=== PATIENT | female | born 1990 | race Caucasian/White ===

== ENCOUNTER 2023-07-13 16:34 | Emergency (ER) | payer OTHER, SELFPAY ==
[2023-07-13 16:39] VITALS: BP 157/90; PULSE 76; RESP 20; TEMP 36.9; O2SAT 99; BMI 18.3
--- NOTE | 2023-07-13 16:53 | ED.SKABFB1 ---
HPI - Skin/Abscess/Foreign Bdy General Chief complaint: Skin/Abscess/Foreign Body Stated complaint: poss infection in breast Time Seen by Provider: 07/13/23 16:35 Source: patient Mode of arrival: walk-in Limitations: no limitations History of Present Illness HPI narrative: patient is a 33-year-old female who presents to the emergency department for the evaluation of redness, pain and swelling to the left breast that was noted today. She does have medical history significant for lumpectomy several years ago with a general surgeon in [place]. She denies any drainage from the red and swollen area under the left nipple. She denies any injuries or traumas. She is not breast-feeding, she has had a previous hysterectomy. No medications taken prior to arrival. Related Data Previous Rx's Medication Instructions Recorded cephalexin 500 mg capsule 500 mg PO Q8H 10 days #30 caps 07/13/23 hydrocodone 5 mg-acetaminophen 325 1 tab PO Q4H PRN pain #15 tabs 07/13/23 mg tablet ondansetron 4 mg disintegrating 4 mg PO Q6H PRN nausea and 07/13/23 tablet vomiting #12 tabs sulfamethoxazole 800 1 tab PO BID 10 days #20 tabs 07/13/23 mg-trimethoprim 160 mg tablet (Bactrim DS) Allergies Allergy/AdvReac Type Severity Reaction Status Date / Time No Known Drug Allergies Allergy Verified 07/13/23 16:39 Review of Systems ROS Constitutional Denies: fever or chills Ears, nose, mouth, and throat Denies: throat pain Respiratory Denies: shortness of breath or cough Gastrointestinal Denies: nausea or vomiting Musculoskeletal Denies: back pain Integumentary/Breast Reports: rash, redness, skin pain and skin tenderness Neurological Denies: headache Endocrine Denies: excessive urination PFSH PFSH Social History Smoking status: Heavy tobacco smoker Exam Narrative Exam Narrative: Gen.: Awake, alert, in no distress Head: Normocephalic, atraumatic ENT: Moist mucous membranes Respiratory: No respiratory distress Breast: evaluation of the left breast was performed with Rita Louise RN at bedside throughout the duration of the exam. Patient's significant other also at bedside. Left breast with erythema and tenderness inferior to the left nipple. The left areola and nipple are without induration, drainage or puckering. Well-healed surgical incision in the left superior breast from previous lumpectomy. No palpable masses under the red and swollen area inferior to the left nipple. No open wounds or drainage. No red streaking. Extremities: Moves extremities equally Psych: Normal mood and affect Neuro: No focal neuro deficit Skin: Warm, dry, intact Constitutional Vital Signs, click to edit/add: Last Vital Signs Temp 98.5 F 07/13/23 16:39 Pulse 76 07/13/23 16:39 Resp 20 07/13/23 16:39 BP 157/90 H 07/13/23 16:39 Pulse Ox 99 07/13/23 16:39 O2 Del Method Room Air 07/13/23 16:39 Course Vital Signs Vital signs: Vital Signs Temperature 98.5 F 07/13/23 16:39 Pulse Rate 76 07/13/23 16:39 Respiratory Rate 20 07/13/23 16:39 Blood Pressure 157/90 H 07/13/23 16:39 Pulse Oximetry 99 07/13/23 16:39 Oxygen Delivery Method Room Air 07/13/23 16:39 Temperature 98.5 F 07/13/23 16:39 Pulse Rate 76 07/13/23 16:39 Respiratory Rate 20 07/13/23 16:39 Blood Pressure 157/90 H 07/13/23 16:39 Pulse Oximetry 99 07/13/23 16:39 Oxygen Delivery Method Room Air 07/13/23 16:39 MDM - Skin/Abscess/Foreign Bdy MDM Narrative Medical decision making narrative: history and physical are consistent with cellulitis/possible early abscess of the left breast. Patient will be started on antibiotic therapy with pain medication and nausea medication as needed. It was strongly encouraged that she follow up with general surgery, if the infection worsens or develops an abscess into the breast tissue, patient will need to see general surgery for further evaluation and treatment. Return to the emergency department if symptoms change or worsen. Medical Records Attestation: I reviewed the patient's medical records. Discharge Plan Discharge Chief Complaint: Skin/Abscess/Foreign Body Clinical Impression: Cellulitis of left breast Patient Disposition: Home, Self-Care Time of Disposition Decision: 16:48 Condition: Good Prescriptions / Home Meds: New hydrocodone-acetaminophen 5-325 mg tablet 1 tab PO Q4H PRN (Reason: pain) Qty: 15 0RF Rx Instructions: DX: L03.90 sulfamethoxazole-trimethoprim [Bactrim DS] 800-160 mg tablet 1 tab PO BID 10 Days Qty: 20 0RF cephalexin 500 mg capsule 500 mg PO Q8H 10 Days Qty: 30 0RF ondansetron 4 mg tablet,disintegrating 4 mg PO Q6H PRN (Reason: nausea and vomiting) Qty: 12 0RF Instructions: Cellulitis (ED) Stand Alone Forms: Portal Instructions Referrals: CAMMIE ANDERSEN [Primary Care Provider] - 1 week Ton Matta MD [Physician] - 1 week
[2023-07-13] MEDS: HYDROCODONE/ACET 5-325 MG TABLET 1 TAB PO (16:57)
== END 2023-07-13 16:58 | disposition home or self-care (01) ==
PROVIDERS: Emergency Provider Emergency Medicine; PCP Family Medicine
DX: N61.0 Mastitis without abscess (principal); F17.210 Nicotine dependence, cigarettes, uncomplicated
CPT/HCPCS: 99283

== ENCOUNTER 2023-09-25 16:13 | Emergency (ER) | payer OTHER, SELFPAY ==
[2023-09-25 16:21] VITALS: BP 168/84; PULSE 84; RESP 18; TEMP 36.6; O2SAT 100; BMI 28.2
--- OUTSIDE RECORDS SUMMARY | 2023-09-25 16:22 | XMS_ITS | CCD ---
Author Name Unknown Address [address] [place] [address] Organization [facility] Care Team Providers Care Supervisor [place] Name Role Phone KARINA, KATHIE Unavailable Unavailable KARINA, KATHIE Unavailable Unavailable KARINA, KATHIE Unavailable Unavailable KARINA, KATHIE Unavailable Unavailable KARINA, KATHIE Unavailable Unavailable REQUEST, NONE LISTED Unavailable Unavailable KARINA, KATHIE Unavailable Unavailable ROE RICHARDS Unavailable Unavailable KARINA, KATHIE Unavailable Unavailable KARINA, KATHIE Unavailable Unavailable KARINA, KATHIE Unavailable Unavailable KARINA, KATHIE Unavailable Unavailable KARINA, KATHIE Unavailable Unavailable KARINA, KATHIE Unavailable Unavailable KARINA, KATHIE Unavailable Unavailable KARINA, KATHIE Unavailable Unavailable HOUSE, CAMMIE Unavailable Unavailable KARINA, KATHIE Unavailable Unavailable KARINA, KATHIE Unavailable Unavailable HOUSE, CAMMIE Unavailable Unavailable KARASIK, SHI Unavailable Unavailable KARINA, KATHIE Unavailable Unavailable KARINA, KATHIE Unavailable Unavailable AGUBOSIM, MIRANDA Unavailable Unavailable Amy SUPERVISOR ELECTRIC MOTOR TESTING-CLINICAL PATHOLOGIST, [place] [facility] Provider [phone] Allergies Allergy Classification Reported Allergen(s) Allergy Type Date of Onset Reaction(s) Facility (1 source) Ciprofloxacin Drug Allergy [address] [facility] Repository (1 source) HYDROmorphone Drug Allergy [address] [facility] (1 source) Leucine Drug Allergy [address] [facility] (1 source) Nitrofurantoin Drug Allergy [address] [facility] (1 source) Sulfonamides (Antibiotic) Drug allergy (disorder) [facility] (1 source) NITROFURANTOIN, MACROCRYSTALS / Nitrofurantoin, Monohydrate Drug Allergy 8 [facility] (1 source) Sulfonamides (Antibiotic) Propensity to adverse reactions to drug 8 [facility] Medications Current Medications Medication Drug Class(es) Dates Sig (Normalized) Sig (Original) [id number] 200 actuat albuterol 0.09 mg/actuat metered dose inhaler (1 source) beta2-Adrenergic Agonist Start: 12-07-2022 take 2 puff(s) by inhalation every six hours as needed for wheezing albuterol (PROVENTIL HFA;VENTOLIN HFA) 90 mcg/actuation inhaler Indications: Mild intermittent asthma without complication Inhale 2 puffs every 6 (six) hours as needed for wheezing. 18 g 2 12/07/2022 Active DULoxetine 30 mg delayed release oral capsule (1 source) Serotonin and Norepinephrine Reuptake Inhibitor Start: 04-27-2023 take 1 capsule by mouth once daily in the morning DULoxetine (CYMBALTA) 30 mg capsule take 1 capsule by mouth every morning 30 capsule 1 04/27/2023 Active Problems Active Problems Problem Classification Problem Date Documented Da te Episodic/Chronic Abdominal pain (5 sources) Pelvic and perineal pain; Translations: [PELVIC AND PERINEAL PAIN] Onset: 03-14-2018 Asthma (1 source) Unspecified asthma, uncomplicated; Translations: [UNSPECIFIED ASTHMA UNCOMPLICATED] Onset: 04-30-2018 Chronic Menstrual disorders (7 sources) Excessive and frequent menstruation with irregular cycle; Translations: [Dysmenorrhea, unspecified] Onset: 03-20-2018 Chronic Other female genital disorders (1 source) Unspecified dyspareunia; Translations: [UNSPECIFIED DYSPAREUNIA] Onset: 04-30-2018 Substance-related disorders (1 source) Nicotine dependence, cigarettes, uncomplicated; Translations: [NICOTINE DEPEND CIGARETTES UNCOMP] Onset: 04-30-2018 Chronic Past or Other Problems Problem Classification Problem Date Documented Date Episodic/Chronic Immunizations and screening for infectious disease (1 source) Encounter for screening for human papillomavirus (HPV); Translations: [ENC SCREENING HUMAN PAPILLOMAVIRUS] Onset: 02-28-2018 Episodic Other screening for suspected conditions (not mental disorders or infectious disease) (4 sources) Encounter for screening for malignant neoplasm of cervix; Translations: [ENC SCREENING MALIG NEOPLASM CERV] Onset: 02-23-2018 Episodic Results Test Name Value Interpretation Reference Range Facility BUNon 04-24-2018 Urea nitrogen mass conc 4.0 mg/dL Critically low 7.0-17.0 [facility] Comment on above: Performed By: #### CT/NGNA ####[facility] [address] [place] [id number] CBC AUTO DIFFon 04-24-2018 Basophils Auto #/vol (Bld) 0.0 103/ul Normal 0.0-0.1 [facility] Comment on above: Performed By: #### CBC ####[facility] ital Nixwavndoa9637 [address] [place] Basophils/100 WBC Auto (Bld) 0.2 % Normal 0.2-2.0 [facility] Comment on above: Performed By: #### CBC ####[facility] Wefuzgsyun20[address] [place] Eosinophils Auto #/vol (Bld) 0.1 103/ul Normal 0.0-0.7 [facility] Comment on above: Performed By: #### CBC ####[facility] ital Mpxxcsxelj8199 [address] [place] Eosinophils/100 WBC Auto (Bld) 0.9 % Normal 0.9-7.0 [facility] Comment on above: Performed By: #### CBC ####[facility] Cmzyshgtfg7548 [address] [place] Erythrocyte distribution width Auto Ratio (RBC) 14.4 % Normal 11.0-15.[address] [facility] Comment on above: Performed By: #### CBC ####[facility] ital Uzuklhvprh7056 [address] [place] Hematocrit Auto Volume Fraction (Bld) 29.3 % Critically low 36.0-48.0 [facility] Comment on above: Performed By: #### CBC ####[facility] ital Jqzbgcnlew5372 [place] [phone] Hemoglobin mass conc (Bld) 9.9 g/dL Critically low 12.0-16.0 [facility] Comment on above: Result Comment: Surgery and IV fluids Performed By: #### C BC ####[facility] Aktkraxhwl2099 [address] [place] IG # 0.04 10e3/ul Critically high 0.00-0.03 [facility] Comment on above: Performed By: #### CBC ####[facility] ital Htcuevcfjf4021 [address] IG % 0.3 % Normal 0.0-0.5 [facility] Comment on above: Performed By: #### CBC ####[facility] Hjihxzrcyh4405 [address] Lymphocytes Auto #/vol (Bld) 1.5 103/ul Normal 1.2-3.8 [facility] Comment on above: Performed By: #### CBC ####[facility] [address] [place] [address] Lymphocytes/100 WBC Auto (Bld) 11.6 % Critically low 20.5-60.[address] [facility] Comment on above: Performed By: #### CBC ####[facility] Zjtzutytwy5553 [address] MANUAL DIFF REQ NO Normal [facility] Comment on above: Performed By: #### CBC ####[facility] Jltibodqac8687 [address] MCH Auto Entitic mass (RBC) 29.1 pg Normal 26.7-34.[address] [facility] Comment on above: Performed By: #### CBC ####[facility] Djklclmghj0456 [address] MCHC Auto mass conc (RBC) 33.8 g/dL Normal 29.9-35.[address] [facility] Comment on above: Performed By: #### CBC ####[facility] Hpqmxzberp9259 [address] MCV Auto Entitic volume (RBC) 86.2 fL Normal 81.0-99.[address] [facility] Comment on above: Performed By: #### CBC ####[facility] ital Igqhabwvxc4988 [place] [phone] Monocytes Auto #/vol (Bld) 1.0 103/ul Critically high 0.3-0.8 [facility] Comment on above: Performed By: #### CBC ####[facility] ital Vavkmcscrg8850 [place] [phone] Monocytes/100 WBC Auto (Bld) 7.5 % Normal 1.7-12.[address] [facility] Comment on above: Performed By: #### CBC ####[facility] ital Ohstjnjcrj[address] [place], [place] [address] Neutrophils Auto #/vol (Bld) 10.4 103/ul Critically high 1.4-6.[address] [facility] Comment on above: Performed By: #### CBC ####[facility] Dt[address]tqys[address] [place], [place] [address] Neutrophils/100 WBC Auto (Bld) 79.5 % Critically high 43.0-75.[address] [facility] Comment on above: Performed By: #### CBC ####[facility] Vlzeelldxi[address] [place], [place] [address] Platelet mean volume Auto Entitic volume (Bld) 10.0 fL Normal 9.5-13.[address] [facility] Comment on above: Performed By: #### CBC ####[facility] Tznjdqvdjn[address] [place], [place] [address] Platelets Auto #/vol (Bld) 252 103/ul Normal 150-[address] [facility] Comment on above: Performed By: #### CBC ####[facility] Ppeyejlwxg[address] [place], [place] [address] RBC Auto #/vol (Bld) 3.40 106/ul Critically low 4.20-5.[address] [facility] Comment on above: Performed By: #### CBC ####[facility] ital Dxqxyrgwfs184[address] [place], [place] [address] WBC Auto #/vol (Bld) 13.1 103/ul Critically high 4.0-11.[address] [facility] Comment on above: Performed By: #### CBC ####[facility] Ivmskffsgh[address] [place], [place] [address] CREATININEon 04-24-2018 Creatinine mass conc 0.49 mg/dL Critically low 0.52-1.[address] [facility] Comment on above: Performed By: #### CT/NGNA ####[facility] [address] [place] [address] [place] EGFR-AF PORTUGUESE >60 Normal >=[address] [facility] Comment on above: Performed By: #### CT/NGNA ####[facility] [address]pl[address]efq[address] [place] [address] [place] EGFR-NON AF PORTUGUESE >60 Normal >=[address] [facility] Comment on above: Performed By: #### CT/NGNA ####[facility] [address]xsgzu[address] [place] [address] [place] CBC AUTO DIFFon 04-23-2018 Basophils Auto #/vol (Bld) 0.1 103/ul Normal 0.0-0.[address] [facility] Comment on above: Performed By: #### CBC ####[facility] Q[address]vsqspwpb[address] [place] [address] [place] Basophils/100 WBC Auto (Bld) 0.4 % Normal 0.2-2.[address] [facility] Comment on above: Performed By: #### CBC ####[facility] Iuntrchvyy[address] [place] [address] [place] Eosinophils Auto #/vol (Bld) 0.3 103/ul Normal 0.0-0.[address] [facility] Comment on above: Performed By: #### CBC ####[facility] Aoiomwpjyd[address] [place] [address] [place] Eosinophils/100 WBC Auto (Bld) 2.2 % Normal 0.9-7.[address] [facility] Comment on above: Performed By: #### CBC ####[facility] Kzbvbllxxr7919 [place] [phone] Erythrocyte distribution width Auto Ratio (RBC) 14.5 % Normal 11.0-15.0 [facility] Comment on above: Performed By: #### CBC ####[facility] Okrehgguiw3693 [place] [phone] Hematocrit Auto Volume Fraction (Bld) 37.0 % Normal 36.0-48.[address] [facility] Comment on above: Performed By: #### CBC ####[facility] Ducdkokskh7683 [place] [phone] Hemoglobin mass conc (Bld) 12.4 g/dL Normal 12.0-16.[address] [facility] Comment on above: Performed By: #### CBC ####[facility] N[address]axbxlcej[address] [place] [address] [place] IG # 0.04 10e3/ul Critically high 0.00-0.03 [facility] Comment on above: Performed By: #### CBC ####[facility] Vkbblmsklc[address] [place] [address] [place] IG % 0.4 % Normal 0.0-0.5 [facility] Comment on above: Performed By: #### CBC ####[facility] Rajapqqeos6650 [place] [phone] Lymphocytes Auto #/vol (Bld) 3.0 103/ul Normal 1.2-3.[address] [facility] Comment on above: Performed By: #### CBC ####[facility] Unthuaifra9968 [place] [phone] Lymphocytes/100 WBC Auto (Bld) 27.1 % Normal 20.5-60.[address] [facility] Comment on above: Performed By: #### CBC ####[facility] Qmdiudftmk5[address] [place] MANUAL DIFF REQ NO Normal [facility] Comment on above: Performed By: #### CBC ####[facility] Oawxkchtjj5718 [place] [phone] MCH Auto Entitic mass (RBC) 28.9 pg Normal 26.7-34.[address] [facility] Comment on above: Performed By: #### CBC ####[facility] Mvovcgndoe9709 [place] [phone] [place] MCHC Auto mass conc (RBC) 33.5 g/dL Normal 29.9-35.[address] [facility] Comment on above: Performed By: #### CBC ####[facility] ital Edczfkglgt8447 [place] [phone] MCV Auto Entitic volume (RBC) 86.2 fL Normal 81.0-99.[address] [facility] Comment on above: Performed By: #### CBC ####[facility] Qedzwhaptm[address] [place] [address] [place] Monocytes Auto #/vol (Bld) 0.9 103/ul Critically high 0.3-0.[address] [facility] Comment on above: Performed By: #### CBC ####[facility] Rukvtbdejj[address] [place], [place] [address] Monocytes/100 WBC Auto (Bld) 8.5 % Normal 1.7-12.[address] [facility] Comment on above: Performed By: #### CBC ####[facility] Clpwhkcyxx3[address] [place], [place] [address] Neutrophils Auto #/vol (Bld) 6.8 103/ul Critically high 1.4-6.[address] [facility] Comment on above: Performed By: #### CBC ####[facility] Zdisjxphex[address] [place], [place] [address] Neutrophils/100 WBC Auto (Bld) 61.4 % Normal 43.0-75.[address] [facility] Comment on above: Performed By: #### CBC ####[facility] Yiubcovvev0277 [place] [phone] Platelet mean volume Auto Entitic volume (Bld) 9.4 fL Critically low 9.5-13.[address] [facility] Comment on above: Performed By: #### CBC ####[facility] Rjubakehna5299 [place], [place] [address]Kzebtm [place] Platelets Auto #/vol (Bld) 356 103/ul Normal 150-[address] [facility] Comment on above: Performed By: #### CBC ####[facility] Boqvsvmlfu8183 [place], [place] [address]Plfoom [place] RBC Auto #/vol (Bld) 4.29 106/ul Normal 4.20-5.[address] [facility] Comment on above: Performed By: #### CBC ####[facility] Jakiffiict[address] [place], [place] [address] WBC Auto #/vol (Bld) 11.1 103/ul Critically high 4.0-11.[address] [facility] Comment on above: Performed By: #### CBC ####[facility] Pdqyuoevhv[address] [place], [place] [address] PREG QUANT HCGon 04-23-2018 HCG QUANT <2.[address] [facility] Comment on above: Performed By: #### PREGQNT ####[facility] Iagcbmjrym[address] [place], [place] [address] HCG RANGE SEE BELOW Normal [facility] Comment on above: Result Comment: 5-50 0-1 WEEK 40-300 1-2 WEEKS 100-1,000 2-3 WEEKS 500-6,000 3-4 WEEKS 5,000-200,000 1-2 MONTHS 10,000-100,000 2-3 MONTHS 3,000-50,000 2ND TRIMESTER 1,000-50,000 3RD TRIMESTER Performed By: #### P REGQNT ####[facility] Gzinmwmbcd[address] [place], [place] [address] CBC AUTO DIFFon 04-02-2018 Basophils Auto #/vol (Bld) 0.0 103/ul Normal 0.0-0.[address] [facility] Comment on above: Performed By: #### CBC ####[facility] Feonvqfews[address] [place], [place] [address] Basophils/100 WBC Auto (Bld) 0.5 % Normal 0.2-2.[address] [facility] Comment on above: Performed By: #### CBC ####[facility] ital Pknlxcoaez4055 [address] [place] Eosinophils Auto #/vol (Bld) 0.3 103/ul Normal 0.0-0.7 [facility] Comment on above: Performed By: #### CBC ####[facility] ital Eebgngwczn[address] [place] [address] [place] Eosinophils/100 WBC Auto (Bld) 3.6 % Normal 0.9-7.0 [facility] Comment on above: Performed By: #### CBC ####[facility] Mgxauxpjge[address] [place] [address] [place] Erythrocyte distribution width Auto Ratio (RBC) 14.2 % Normal 11.0-15.0 [facility] Comment on above: Performed By: #### CBC ####[facility] Lwcdwjbdmb[address] [place] [address] [place] Hematocrit Auto Volume Fraction (Bld) 40.7 % Normal 36.0-48.0 [facility] Comment on above: Performed By: #### CBC ####[facility] Skjnnkebnh[address] [place] [address] [place] Hemoglobin mass conc (Bld) 13.6 g/dL Normal 12.0-16.0 [facility] Comment on above: Performed By: #### CBC ####[facility] Tlkmr[address]nt[address] [place] [address] [place] IG # 0.02 10e3/ul Normal 0.00-0.[address] [facility] Comment on above: Performed By: #### CBC ####[facility] C[address]omtjzhvs[address] [place] [address] [place] IG % 0.2 % Normal 0.0-0.[address] [facility] Comment on above: Performed By: #### CBC ####[facility] Trpktemdxj[address] [place] [address] [place] Lymphocytes Auto #/vol (Bld) 1.9 103/ul Normal 1.2-3.8 [facility] Comment on above: Performed By: #### CBC ####[facility] ital Zvwwhjqsbv3656 [place] [phone] Lymphocytes/100 WBC Auto (Bld) 22.5 % Normal 20.5-60.0 [facility] Comment on above: Performed By: #### CBC ####[facility] ital Aajgsptbqx8722 [address] [place] MANUAL DIFF REQ NO Normal [facility] Comment on above: Performed By: #### CBC ####[facility] Lhixmtkgbf5846 [place] [phone] MCH Auto Entitic mass (RBC) 29.0 pg Normal 26.7-34.[address] [facility] Comment on above: Performed By: #### CBC ####[facility] R[address]rwifzd[address] [place] [address] [place] MCHC Auto mass conc (RBC) 33.4 g/dL Normal 29.9-35.[address] [facility] Comment on above: Performed By: #### CBC ####[facility] Vthtndannf[address] [place], [place] [address] MCV Auto Entitic volume (RBC) 86.8 fL Normal 81.0-99.[address] [facility] Comment on above: Performed By: #### CBC ####[facility] Shmaohzumu[address] [place], [place] [address] Monocytes Auto #/vol (Bld) 0.7 103/ul Normal 0.3-0.[address] [facility] Comment on above: Performed By: #### CBC ####[facility] Fxnxtfugsk[address] [place], [place] [address] Monocytes/100 WBC Auto (Bld) 8.9 % Normal 1.7-12.[address] [facility] Comment on above: Performed By: #### CBC ####[facility] Mchvyujyza[address] [place], [place] [address] Neutrophils Auto #/vol (Bld) 5.4 103/ul Normal 1.4-6.5 [facility] Comment on above: Performed By: #### CBC ####[facility] Qnmkidioky0476 [address] [place] Neutrophils/100 WBC Auto (Bld) 64.3 % Normal 43.0-75.0 [facility] Comment on above: Performed By: #### CBC ####[facility] Canvobfuzh7358 [address] [place] Platelet mean volume Auto Entitic volume (Bld) 9.2 fL Critically low 9.5-13.5 [facility] Comment on above: Performed By: #### CBC ####[facility] Osoevbvoii[address] [place] [address] [place] Platelets Auto #/vol (Bld) 327 103/ul Normal 150-[address] [facility] Comment on above: Performed By: #### CBC ####[facility] Xxnsjykvhi[address] [place] [address] [place] RBC Auto #/vol (Bld) 4.69 106/ul Normal 4.20-5.40 [facility] Comment on above: Performed By: #### CBC ####[facility] [address]xkjkorrec[address] [place] [address] [place] WBC Auto #/vol (Bld) 8.3 103/ul Normal 4.0-11.[address] [facility] Comment on above: Performed By: #### CBC ####[facility] Bugabbdqme[address] [place] [address] [place] TSHon 04-02-2018 Thyrotropin Qn 1.150 uIU/mL Normal 0.470-4.[address] [facility] Comment on above: Performed By: #### TSH ####[facility] [address]ysve[address]fv[address] [place] [address] [place] Thyrotropin Qn SEE BELOW Normal [facility] Comment on above: Result Comment: <0.34 UIU/ml HYPERTHYROI D 0.34-5.60 UIU/ml EUTHYROID >5.60 UIU/ml HYPOTHYROID Performed By: #### T SH ####[facility] Ducpcjecfm6922 [place], [place] [address]Ltplbx Karen US PELVIS AND TRANSVAGon US PELVIS AND TRANSVAG [address] [place] [address] Patient: ERNA JENKINS Exam Date: 03/14/2018DOB: 1990 Gender:F : DR KATHIE COLLINS . Admission #: [id number] : Order #: [id number] HERE TO VIEW EXAM RADIOLOGY REPORT PROCEDURE: ULTRASOUND PELVIS AND TRANSVAGINAL COMPARISON: US PELVIS AND TRANSVAG, 06/20/2015. INDICATIONS: Chronic pelvic pain with menorrhagia TECHNIQUE: Transabdominal sonographic examination. Transvaginal sonographic examination.FINDINGS: UTERUS: Normal size and appearance. Uterus: 8.5 x 4.0 x 5.1 cm (89.9 cc)ENDOMETRIUM: Normal homogeneous appearance. Endometrial thickness: 2 mm RIGHT OVARY: Normal size and appearance. Blood flow present within ovary on color Doppler. Right ovary: 2.9 x 2.2 x 2.7 cm (8.9 cc) LEFT OVARY: Normal size and appearance. Blood flow is present within ovary on Color Doppler. Left ovary: 2.5 x 2.6 x 2.1 cm (7.1 cc) CUL-DE-SAC: Unremarkable. No significant free fluid.BLADDER: Unremarkable.OTHER: None. CONCLUSION: Normal examination. Dictated by: Roe Richards M.D. on 03/14/2018 at 17:59 Approved by: Roe Richards M.D. on 03/14/2018 at 18:00 Normal [facility] PAP ACOG PANEL 2: 30 to 65on 02-28-2018 Age Gdln ACOG Testing 30-65 Normal [facility] Comment on above: Performed By: #### [id number] ####[facility] Nchdbhuyrs9857 [place], [place] [address]Zwqegd [place] COMMENT Comment Normal [facility] Comment on above: Result Comment: [id number] a t: WB Performed By: #### [id number] ####[facility] [address] [place] [address] [place] DIAGNOSIS: Comment Normal [facility] Comment on above: Result Comment: NEGATIVE FOR INTRAEPITHE LIAL LESION AND MALIGNANCY.THIS SPECIMEN WAS RESCREENED PART OF OUR [facility] PROGRAM.Performed at: WB Performed By: #### [id number] ####[facility] [address]ftxq[address] [place] [address] [place] HPV Aptima Negative Normal Negative [facility] Comment on above: Result Comment: This test was developed and its performance characteristicsdetermined by [employer]. It has not been cleared or approvedby the Food and Drug Administration.This test detects fourteen high-risk HPV types (16/18/31/33/35/39/45/51/52/56/58/59/66/68) without differentiation.Performed at: =G Performed By: #### [id number] ####[address] Methodology: Comment Normal [facility] Comment on above: Result Comment: This liquid based SurePa th(R) pap test was screened with theassistance of an image guided system.Performed at: WB Performed By: #### [id number] ####[facility] [address] [place] [address] Note: Comment Normal [facility] Comment on above: Result Comment: The Pap smear is a scree blayne test designed to aid in the detection ofpremalignant and malignant conditions of the uterine cervix. It is not adiagnostic procedure and should not be used as the sole means of detectingcervical cancer. Both false-positive and false-negative reports do occur. .Performed at: WB Performed By: #### [id number] ####[facility] [address] [place] [address] [place] Performed by: Comment Normal [facility] Comment on above: Result Comment: Maryjane Moss Cytote chnologist (ASCP)Performed at: WB Performed By: #### [id number] ####[facility] [address] [place] [address] [place] QC reviewed by: Comment Normal [facility] Comment on above: Result Comment: Patsy Hernandez, Cytot echnologist (ASCP)Performed at: WB Performed By: #### [id number] ####[facility] [address] [place] Specimen adequacy: Comment Normal [facility] Comment on above: Result Comment: Satisfactory for evaluat ion. Endocervical and/or squamous metaplasticcells (endocervical component) are present.Performed at: WB Performed By: #### [id number] ####[facility] [address] [place] . . Normal [facility] Comment on above: Result Comment: Performed at: WB Performed By: #### [id number] ####[facility] [address] [place] CHLAMYDIA/GONOCOCCUS FLOWER W/C ONF. (SWAB/Uon 11-12-2017 Chlamydia Trach FLOWER Negative Normal Negative [facility] Comment on above: Performed By: #### CT/NGNA ####[facility] [address] [place] N. Gonorrhoeae FLOWER Negative Normal Negative [facility] Comment on above: Performed By: #### CT/NGNA ####[facility] [address] [place] VAGINITIS/VAGINOSIS DNA PROB Mario 11-11-2017 Adeline species Negative Normal Negative [facility] Comment on above: Performed By: #### VAGINT ####[facility] [address] [place] Gardnerella vaginalis Negative Normal Negative [facility] Comment on above: Performed By: #### VAGINT ####[facility] [address] [place] Trichomonas vaginalis Negative Normal Negative [facility] Comment on above: Performed By: #### VAGINT ####[facility] [address] [place] [id number] Fleming Encounters Encounter Date Encounter Type Care Provider Facility Start: 09-20-2023 Telephone encounter [facility] Start: 04-23-2018 End: 04-25-2018 Evaluation and management of inpatient KATHIE KARINA Facility:H1 Start: 04-11-2018 Encounter for other preprocedural examination KATHIE [facility] Start: 04-05-2018 End: 04-06-2018 Patient encounter procedure KATHIE KARNIA Facility:[facility]1 Start: 04-02-2018 End: 04-03-2018 Patient encounter procedure KATHIE KARINA Facility:[facility]1 Start: 03-14-2018 End: 03-15-2018 Patient encounter procedure KATHIE KARINA Facility:[facility]1 Start: 02-23-2018 End: 02-23-2018 Patient encounter procedure KATHIE KARINA Facility:[facility]1 Start: 11-09-2017 End: 11-09-2017 Patient encounter procedure KATHIE KARINA Facility:H1 Encounter for other preprocedural examination KATHIE [facility] Procedures Date Procedure Procedure Detail Performing Clinician Start: 04-23-2018 Resection of Bilater al Fallopian Tubes, Open Approach KATHIE KARINA Start: 04-23-2018 Resection of Uterus, Open Approach KATHIE KARINA Plan of Treatment Date Care Activity Detail Author Start: 06-09-2024 Tobacco Counseling Tobacco Counselin g [facility] Start: 12-08-2023 Adult BMI Screening Adult BMI Screen ing [facility] Start: 12-08-2023 Tobacco Screening Tobacco Screening [facility] Start: 05-26-2023 Influenza vaccination Influenza Vacc ine [facility] Start: 02-10-2007 DTaP,Tdap and Td Vaccines (1 - Tdap) DTaP,Tdap and Td Vaccines (1 - Tdap) [facility] Start: 2000 Depression Screening Depression Scre ening [facility] Payers Date Payer Category Payer Medicaid [facility] MEDICAID [facility] MEDICAID [id number] 2023-Present [phone] [address] [place] [address] [id number] 1988 Unknown [id number] 1988 Unknown [id number] 1988 Unknown [id number] 1988 Unknown [id number] 1988 Unknown [id number] 1988 Unknown [id number] 1959 Unknown [id number] Social History Date Type Detail Facility Start: [facility]2022 [facility] History of tobacco use Cigarette Smoker P [facility] Start: 11-04-2020 End: 12-07-2022 Cigarettes smoked current (pack per day) - Reported 1 [facility] Start: 12-07-2022 Tobacco use and exposure Smoke less tobacco non-user [facility] Start: 12-07-2022 Alcohol intake Current drinke r of alcohol (finding) [facility] Start: 11-04-2020 End: 12-07-2022 Tobacco use panel [facility] Housing Instability Unknown [facility] Start: 11-05-2017 Alcohol Comment [facility] Start: 1990 Sex Assigned At Not on file P [facility] Note 09-20-2023 Telephone Encounter - Chika Martinez CMA - 09/20/2023 4:13 PM EST Note Date & Type Note Facility 09-20-2023 Miscellaneous Notes Formattin g of this note might be different from the original. Trying to call patient to get scheduled for a [facility] appointment. Have called all 3 numbers on patient chart.Patient phone number disconnected an left a vm on the other two for patient to call us back. documented in this encounter [facility] Telephone encounter Note 09-20-2023 Telephone Encounter - Chika Martinez CMA - 09/20/2023 4:13 PM EST Note Date & Type Note Facility 09-20-2023 Telephone encounter Note Trying to call patient to get scheduled for a [facility] L[facility] SPECIALIST appointment. Have called all 3 numbers on patient chart.Patient phone number disconnected an left a vm on the other two for patient to call us back. [employer] Instructions Note Date & Type Note Facility Instructions Not on filedocumented in this en counter [employer] Summary Purpose Family History No Family History Records Found Advance Directives No Advanced Directives Records Found Hospital Course Note DISCHARGE SUMMARYDischarge D ate: 1-0-51AEPLGHG DIAGNOSIS:1. Menometrorrhagia.2. Dysmenorrhea.3. Dyspareunia.4. Pelvic pain.PROCEDURE: Total abdominal hysterectomy, bilateral salpingectomy, withcystoscopy.CONSULTATION: Anesthesia.HOSPITAL COURSE: Was as expected, please see chart for full details.LABS: Please see chart.DISCHARGE CONDITION: Stable.DISCHARGE PLAN:ACTIVITY: Pelvic rest for 6 weeks. No heavy lifting for 6 weeks greater than[address] when pain free and no longer on narcotics.DIET: Regular.MEDICATIONS:Percocet, 5/325, 1-2 p.o. q4-5h p.r.n. pain.Motrin, 800, 1 p.o. q8h p.r.n. pain.FOLLOW-UP: In 1 week. The patient was instructed to return to the hospitalwith any vaginal bleeding greater than a period. Any fever unrelieved byTylenol, any abdominal pain unrelieved with narcotics.[facility] Signed and Approved by: DR KATHIE COLLINS .05/03/2018 14:20:00 Additional Source Comments INFORMATION SOURCE (unrecogn ized section and content) DATE CREATED AUTHOR 09/02/2018 [facility] Teams (unrecognized sec tion and content) Supervisor [place] Relationship Specialty Start Date End Date Kyra Reyes APRN-CLINICAL PATHOLOGIST [address] [place], [place] [id number] PCP - General Family Medicine 09/05/23 FOR RECORDS PERTAINING TO PATIENTS WHO ARE OR HAVE BEEN ENROLLED IN A CHEMICAL DEPENDENCY/SUBSTANCEABUSE PROGRAM, SOME INFORMATION MAY BE OMITTED. This clinical summary was aggregated from multiple sources. Caution should be exercised in using it in the provision of clinical care. This summary normalizes information from multiple sources, and as a consequence, information in this document may materially change the coding, format and clinical context of patient data. In addition, data may be omitted in some cases. CLINICAL DECISIONS SHOULD BE BASED ON THE PRIMARY CLINICAL RECORDS. [employer] provides no warranty or guarantee of the accuracy or completeness of information in this document.
[2023-09-25 16:40] VITALS: O2SAT 100
--- NOTE | 2023-09-25 16:57 | ED.SOB1 ---
HPI - SOB/Dyspnea General Chief Complaint: Shortness of Breath/Dyspnea Stated Complaint: Shortness of Breath, Hx Asthema Time Seen by Provider: 09/25/23 16:57 Source: patient Mode of arrival: walk-in History of Present Illness HPI Narrative: this patient's here today for refill of her asthma medication. She said for the last several days she's been getting wheezing and tighter. She spent an asthmatic since she was [age] years old. She has not had a comp caning issues recently such as influenza fever or purulent sputum aches and pains headache are all negative. She just ran out of her inhaler and her doctor will be in because the holiday. She was seen by triage nurse and given a DuoNeb and feels much much better. Her initial pulse oximetry here was a hundred percent with Ruster rate of eighteen. Apparently she did have some wheezing. Related Data Previous Rx's Medication Instructions Recorded cephalexin 500 mg capsule 500 mg PO Q8H 10 days #30 caps 07/13/23 hydrocodone 5 mg-acetaminophen 325 1 tab PO Q4H PRN pain #15 tabs 07/13/23 mg tablet ondansetron 4 mg disintegrating 4 mg PO Q6H PRN nausea and 07/13/23 tablet vomiting #12 tabs sulfamethoxazole 800 1 tab PO BID 10 days #20 tabs 07/13/23 mg-trimethoprim 160 mg tablet (Bactrim DS) Allergies Allergy/AdvReac Type Severity Reaction Status Date / Time No Known Drug Allergies Allergy Verified 07/13/23 16:39 PFSH PFSH Social History Smoking status: Current every day smoker Exam Narrative Exam Narrative: awake alert feels better after her nebulizer. Complete sentences is not dyspneic or anxious. Her lungs now showed no wheeze rales or rhonchi. Heart sounds are normal. Skin is warm and dry mucous members moist pink is no focus of ENT infection historically or on the examination. She otherwise good health today. I will gladly give her a refill but she should follow up with primary care in the future Constitutional Vital Signs, click to edit/add: Last Vital Signs Temp 97.8 F 09/25/23 16:21 Pulse 84 09/25/23 16:21 Resp 18 09/25/23 16:21 BP 168/84 H 09/25/23 16:21 Pulse Ox 100 09/25/23 16:40 O2 Del Method Room Air 09/25/23 16:40 Course Vital Signs Vital signs: Vital Signs Temperature 97.8 F 09/25/23 16:21 Pulse Rate 84 09/25/23 16:21 Respiratory Rate 18 09/25/23 16:21 Blood Pressure 168/84 H 09/25/23 16:21 Pulse Oximetry 100 09/25/23 16:21 Oxygen Delivery Method Room Air 09/25/23 16:21 Temperature 97.8 F 09/25/23 16:21 Pulse Rate 84 09/25/23 16:21 Respiratory Rate 18 09/25/23 16:21 Blood Pressure 168/84 H 09/25/23 16:21 Pulse Oximetry 100 09/25/23 16:40 Oxygen Delivery Method Room Air 09/25/23 16:40 Discharge Plan Discharge Chief Complaint: Shortness of Breath/Dyspnea Clinical Impression: Asthma exacerbation Patient Disposition: Home, Self-Care Time of Disposition Decision: 17:05 Prescriptions / Home Meds: No Action hydrocodone-acetaminophen 5-325 mg tablet 1 tab PO Q4H PRN (Reason: pain) Qty: 15 0RF Rx Instructions: DX: L03.90 sulfamethoxazole-trimethoprim [Bactrim DS] 800-160 mg tablet 1 tab PO BID 10 Days Qty: 20 0RF cephalexin 500 mg capsule 500 mg PO Q8H 10 Days Qty: 30 0RF ondansetron 4 mg tablet,disintegrating 4 mg PO Q6H PRN (Reason: nausea and vomiting) Qty: 12 0RF Additional Instructions: prescription given for Medrol pack and albuterol inhaler Stand Alone Forms: Portal Instructions Referrals: [facility] [Primary Care Provider] - 1 week
== END 2023-09-25 17:17 | disposition home or self-care (01) ==
PROVIDERS: Emergency Provider Emergency Medicine Emergency Medical Services
DX: J45.901 Unspecified asthma with (acute) exacerbation (principal); Z79.899 Other long term (current) drug therapy; F17.210 Nicotine dependence, cigarettes, uncomplicated
CPT/HCPCS: 94640; 99283

== ENCOUNTER 2024-03-25 18:14 | Emergency (ER) | payer SELFPAY ==
[2024-03-25 18:28] VITALS: BP 84/53; PULSE 101; TEMP 36.7; O2SAT 98; BMI 21.0
--- NOTE | 2024-03-25 18:32 | ED.GENADUL1 ---
HPI HPI - General Adult General Chief complaint: Wound/Laceration Stated complaint: Sting/Bite Time Seen by Provider: 03/25/24 18:23 Source: patient Mode of arrival: walk-in Limitations: no limitations History of Present Illness HPI narrative: 34-year-old female presents for 3 insect bites. She is not sure what it was. She is not sure if it was a bee or something else. She was stung or bitten on her left buttock or left foot and her right arm. This happened just before coming into the emergency department. No tongue swelling or generalized rash. Related Data Previous Rx's ?Medication ?Instructions ?Recorded cephalexin 500 mg capsule 500 mg PO Q8H 10 days #30 caps 07/13/23 hydrocodone 5 mg-acetaminophen 325 1 tab PO Q4H PRN pain #15 tabs 07/13/23 mg tablet ondansetron 4 mg disintegrating 4 mg PO Q6H PRN nausea and 07/13/23 tablet vomiting #12 tabs sulfamethoxazole 800 1 tab PO BID 10 days #20 tabs 07/13/23 mg-trimethoprim 160 mg tablet (Bactrim DS) Allergies Allergy/AdvReac Type Severity Reaction Status Date / Time nitrofurantoin Allergy Intermediate Hives Verified 03/25/24 18:27 [From Macrobid] Sulfa (Sulfonamide Allergy Intermediate Hives Verified 03/25/24 18:27 Antibiotics) Opioid HPI Opioid Management Most Recent Opioid Data: No Data to Display Review of Systems ROS Narrative A ten point review of systems is negative except as noted above. PFSH PFSH Social History Smoking status: Current every day smoker Exam Narrative Exam Narrative: Nurses note and vital signs reviewed and patient is not hypoxic. General: The patient appears well and in no apparent distress. Patient is resting comfortably on cart. Skin: Warm, dry, no pallor noted. There is some mild swelling localized erythema on her left buttock, left foot, and right arm. There is no generalized urticaria. Tongue not swollen. Head: Normocephalic, atraumatic Eye: Normal conjunctiva, no drainage Ears, Nose, Mouth, and Throat: oral mucosa is moist. Nares patent. Cardiovascular: Regular Rate and Rhythm Respiratory: Patient is in no distress, no accessory muscle use, lungs are clear to auscultation, no wheezing, rales or rhonchi Back: non-tender, no CVA tenderness bilaterally to percussion. GI: Soft and nontender Musculoskeletal: The patient has no evidence of calf tenderness, no pitting edema, symmetrical pulses noted bilaterally Neurological: Awake and alert Psychiatric: Cooperative, anxious Constitutional Vital Signs, click to edit/add: Last Vital Signs Temp 98.1 F 03/25/24 18:28 Pulse 101 H 03/25/24 18:28 Resp 16 03/25/24 18:28 BP 84/53 L 03/25/24 18:28 Pulse Ox 98 03/25/24 18:28 O2 Del Method Room Air 03/25/24 18:28 Course Vital Signs Vital signs: Vital Signs Temperature 98.1 F 03/25/24 18:28 Pulse Rate 101 H 03/25/24 18:28 Respiratory Rate 16 03/25/24 18:28 Blood Pressure 84/53 L 03/25/24 18:28 Pulse Oximetry 98 03/25/24 18:28 Oxygen Delivery Method Room Air 03/25/24 18:28 Temperature 98.1 F 03/25/24 18:28 Pulse Rate 101 H 03/25/24 18:28 Respiratory Rate 16 03/25/24 18:28 Blood Pressure 84/53 L 03/25/24 18:28 Pulse Oximetry 98 03/25/24 18:28 Oxygen Delivery Method Room Air 03/25/24 18:28 Medical Decision Making MDM Narrative Medical decision making narrative: Medications are ordered and the patient is signed out to Dr. Scott at change of shift. Discharge Plan Discharge Patient Disposition: Still a Patient
--- OUTSIDE RECORDS SUMMARY | 2024-03-25 18:33 | XMS_ITS | CCD ---
Author Organization [facility] Care Team Providers Care Route Sales Delivery Drivers Supervisor Name Role Phone KARINA, KATHIE Unavailable Unavailable [...] KATHIE Unavailable Unavailable AGUBOSIM, MIRANDA Unavailable Unavailable Claribel CHARGE ENTRY SPECIALIST-TRACTOR TRAILER DRIVER, [place] Primary Care Provider [phone] JOCELYN RAMIREZ Attending Unavailable [facility], [place] Referring Unavailable CLARIBEL, [place] Primary Care Unavailable JOCELYN RAMIREZ Referring Unavailable CLARIBEL, [place] Primary Care Unavailable Allergies Allergy Classification Reported Allergen(s) Allergy Type Date of Onset Reaction(s) Facility (1 source) Ciprofloxacin Drug Allergy 6 HIVES [facility] (1 source) HYDROmorphone Drug Allergy 5 NAUSEA [facility] (1 source) Leucine Drug Allergy 4 RASH [facility] (1 source) Nitrofurantoin Drug Allergy 4 HIVES [facility] (1 source) Sulfonamides (Antibiotic) Drug allergy (disorder) 4 [facility] (6 sources) NITROFURANTOIN, MACROCRYSTALS / Nitrofurantoin, Monohydrate; Translations: [NITROFURANTOIN MONOHYD/M-CRYST] Drug Allergy 8 [facility] (6 sources) Sulfonamides (Antibiotic); Translations: [SULFA (SULFONAMIDE ANTIBIOTICS)] Propensity to adverse reactions to drug 8 [facility] Medications Current Medications Medication Drug Class(es) Dates Sig (Normalized) Sig (Original) [id number] 200 actuat albuterol 0.09 mg/actuat metered dose inhaler (4 sources) beta2-Adrenergic Agonist Start: 12-07-2022 take 2 puff(s) by inhalation every six hours as needed for wheezing albuterol (PROVENTIL HFA;VENTOLIN HFA) 90 mcg/actuation inhaler Indications: Mild intermittent asthma without complication Inhale 2 puffs every 6 (six) hours as needed for wheezing. 18 g 2 12/07/2022 Active DULoxetine 30 mg delayed release oral capsule (4 sources) Serotonin and Norepinephrine Reuptake Inhibitor Start: 04-27-2023 [...] Translations: [Dysmenorrhea, unspecified] Onset: 03-20-2018 Chronic Other connective tissue disease (1 source) Mass of soft tissue; Translations: [Other specified soft tissue disorders] 10-16-2023 Episodic Other female genital disorders (1 source) Unspecified dyspareunia; Translations: [UNSPECIFIED DYSPAREUNIA] Onset: 04-30-2018 Other skin disorders (1 source) Mass of lower limb; Translations: [Localized swelling, mass and lump, left lower limb] 10-16-2023 Episodic Substance-related disorders (1 source) Nicotine dependence, cigarettes, [...] mass conc 4.0 mg/dL Critically low 7.0-17.0 [facility] Comment on above: Performed By: #### CT/NGNA ####[facility] [address] [place], [place] [address]ken [place] CBC AUTO DIFFon 04-24-2018 Basophils Auto #/vol (Bld) 0.0 103/ul Normal 0.0-0.1 [facility] Comment on above: Performed By: #### CBC ####[facility] ital T[address] [place] [address] [place] Basophils/100 WBC Auto (Bld) 0.2 % Normal 0.2-2.0 [facility] Comment on above: Performed By: #### CBC ####[facility] ital Isghzckqfo[address] [place], [place] [address] Eosinophils Auto #/vol (Bld) 0.1 103/ul Normal 0.0-0.7 [facility] Comment on above: Performed By: #### CBC ####[facility] ital Waljtegtux[address] [place], [place] [address] Eosinophils/100 WBC Auto (Bld) 0.9 % Normal 0.9-7.0 [facility] Comment on above: Performed By: #### CBC ####[facility] ital Jquxssasck[address] [place], [place] [address] Erythrocyte distribution width Auto Ratio (RBC) 14.4 % Normal 11.0-15.0 [facility] Comment on above: Performed By: #### CBC ####[facility] ital Seeulolvuq0880 [address] [place] Hematocrit Auto Volume Fraction (Bld) 29.3 % Critically low 36.0-48.0 [facility] Comment on above: Performed By: #### CBC ####[facility] Wdofaiqypw2618 [address] [place] Hemoglobin mass conc (Bld) 9.9 g/dL Critically low 12.0-16.0 [facility] Comment on above: Result Comment: Surgery and IV fluids Performed By: #### C BC ####[facility] [address] [place] [address] [place] IG # 0.04 10e3/ul Critically high 0.00-0.03 [facility] Comment on above: Performed By: #### CBC ####[facility] [address]wy[address]fynln[address] [place] [address] [place] IG % 0.3 % Normal 0.0-0.5 [facility] Comment on above: Performed By: #### CBC ####[facility] Lydfpelxha[address] [place] [address] [place] Lymphocytes Auto #/vol (Bld) 1.5 103/ul Normal 1.2-3.8 [facility] Comment on above: Performed By: #### CBC ####[facility] Ab[address]pmqir[address] [place] [address] [place] Lymphocytes/100 WBC Auto (Bld) 11.6 % Critically low 20.5-60.0 [facility] Comment on above: Performed By: #### CBC ####[facility] Edopz[address]fg[address] [place] [address] [place] MANUAL DIFF REQ NO Normal [facility] Comment on above: Performed By: #### CBC ####[facility] Orybvptcwg[address] [place] [address] [place] MCH Auto Entitic mass (RBC) 29.1 pg Normal 26.7-34.0 [facility] Comment on above: Performed By: #### CBC ####[facility] Vudobcoplf58[address] Street[place], [place] [address]Zghfes [place] MCHC Auto mass conc (RBC) 33.8 g/dL Normal 29.9-35.2 [facility] Comment on above: Performed By: #### CBC ####[facility] ital Gpbyczuzhi[address]63 [place], [place] [address]Pcmomy [place] MCV Auto Entitic volume (RBC) 86.2 fL Normal 81.0-99.0 [facility] Comment on above: Performed By: #### CBC ####[facility] ital Iqwhyqnhln[address] [place], [place] [address] Monocytes Auto #/vol (Bld) 1.0 103/ul Critically high 0.3-0.8 [facility] Comment on above: Performed By: #### CBC ####[facility] Klrammphwo[address] [place], [place] [address] Monocytes/100 WBC Auto (Bld) 7.5 % Normal 1.7-12.0 [facility] Comment on above: Performed By: #### CBC ####[facility] Fyekassdeb[address] [place], [place] [address] Neutrophils Auto #/vol (Bld) 10.4 103/ul Critically high 1.4-6.5 [facility] Comment on above: Performed By: #### CBC ####[facility] Psjtjhlpwd[address] [place], [place] [address] Neutrophils/100 WBC Auto (Bld) 79.5 % Critically high 43.0-75.0 [facility] Comment on above: Performed By: #### CBC ####[facility] Xeaikyqtdg0318 [place], [place] [address]Oraulx [place] Platelet mean volume Auto Entitic volume (Bld) 10.0 fL Normal 9.5-13.5 [facility] Comment on above: Performed By: #### CBC ####[facility] Rfqexxsirl[address] [place] [address]Iehfui [place] Platelets Auto #/vol (Bld) 252 103/ul Normal 150-450 [facility] Comment on above: Performed By: #### CBC ####[facility] ital Rlzadcghbz4516 [address] [place] RBC Auto #/vol (Bld) 3.40 106/ul Critically low 4.20-5.40 [facility] Comment on above: Performed By: #### CBC ####[facility] ital Sfssepelde2695 [address] [place] WBC Auto #/vol (Bld) 13.1 103/ul Critically high 4.0-11.0 [facility] Comment on above: Performed By: #### CBC ####[facility] [address]of[address] [place] [address] [place] CREATININEon 04-24-2018 Creatinine mass conc 0.49 mg/dL Critically low 0.52-1.04 [facility] Comment on above: Performed By: #### CT/NGNA ####[facility] [address] [place] [address] [place] EGFR-AF NIGERIAN >60 Normal >=60 [facility] Comment on above: Performed By: #### CT/NGNA ####[facility] [address] [place] [address] [place] EGFR-NON AF NIGERIAN >60 Normal >=60 [facility] Comment on above: Performed By: #### CT/NGNA ####[facility] V[address] [place] [address] [place] CBC AUTO DIFFon 04-23-2018 Basophils Auto #/vol (Bld) 0.1 103/ul Normal 0.0-0.1 [facility] Comment on above: Performed By: #### CBC ####[facility] [address] [place] [address] [place] Basophils/100 WBC Auto (Bld) 0.4 % Normal 0.2-2.0 [facility] Comment on above: Performed By: #### CBC ####[facility] [address]ys[address] [place] [address] [place] Eosinophils Auto #/vol (Bld) 0.3 103/ul Normal 0.0-0.7 [facility] Comment on above: Performed By: #### CBC ####[facility] ital Pwedecsuod2271 [address] [place] Eosinophils/100 WBC Auto (Bld) 2.2 % Normal 0.9-7.0 [facility] Comment on above: Performed By: #### CBC ####[facility] ital Skaqtkgyfo2193 [address] [place] Erythrocyte distribution width Auto Ratio (RBC) 14.5 % Normal 11.0-15.0 [facility] Comment on above: Performed By: #### CBC ####[facility] Rdvlmbnhec[address] [place] [address] [place] Hematocrit Auto Volume Fraction (Bld) 37.0 % Normal 36.0-48.0 [facility] Comment on above: Performed By: #### CBC ####[facility] S[address]qqfuptu[address] [place] [address] [place] Hemoglobin mass conc (Bld) 12.4 g/dL Normal 12.0-16.0 [facility] Comment on above: Performed By: #### CBC ####[facility] Bjnfhq[address] [place] [address] [place] IG # 0.04 10e3/ul Critically high 0.00-0.03 [facility] Comment on above: Performed By: #### CBC ####[facility] [address]urqejri[address] [place] [address] [place] IG % 0.4 % Normal 0.0-0.5 [facility] Comment on above: Performed By: #### CBC ####[facility] ital U[address]qwww[address] [place] [address] [place] Lymphocytes Auto #/vol (Bld) 3.0 103/ul Normal 1.2-3.8 [facility] Comment on above: Performed By: #### CBC ####[facility] ital Sm[address]xrvaarq[address] [place] [address] [place] Lymphocytes/100 WBC Auto (Bld) 27.1 % Normal 20.5-60.0 [facility] Comment on above: Performed By: #### CBC ####[facility] ital Dnqrkmadrk0772 [address] [place] MANUAL DIFF REQ NO Normal [facility] Comment on above: Performed By: #### CBC ####[facility] ital Vxtyalddzk9440 [place] [id number] [place] MCH Auto Entitic mass (RBC) 28.9 pg Normal 26.7-34.0 [facility] Comment on above: Performed By: #### CBC ####[facility] ital Klauuenzdu5848 [address] [place] MCHC Auto mass conc (RBC) 33.5 g/dL Normal 29.9-35.2 [facility] Comment on above: Performed By: #### CBC ####[facility] J[address]xastuwhm[address] [place] [address] [place] MCV Auto Entitic volume (RBC) 86.2 fL Normal 81.0-99.0 [facility] Comment on above: Performed By: #### CBC ####[facility] Qorgrcuraj[address] [place] [address] [place] Monocytes Auto #/vol (Bld) 0.9 103/ul Critically high 0.3-0.8 [facility] Comment on above: Performed By: #### CBC ####[facility] Cxhsohilhm[address] [place], [place] [address]Gerken [place] Monocytes/100 WBC Auto (Bld) 8.5 % Normal 1.7-12.0 [facility] Comment on above: Performed By: #### CBC ####[facility] Rnvoptkuri7624 [place] [address]ken [place] Neutrophils Auto #/vol (Bld) 6.8 103/ul Critically high 1.4-6.5 [facility] Comment on above: Performed By: #### CBC ####[facility] [address]zu[address] [place], [place] [address]Gerken [place] Neutrophils/100 WBC Auto (Bld) 61.4 % Normal 43.0-75.0 [facility] Comment on above: Performed By: #### CBC ####[facility] Piycnsrkcu8214 [address] [place] Platelet mean volume Auto Entitic volume (Bld) 9.4 fL Critically low 9.5-13.5 [facility] Comment on above: Performed By: #### CBC ####[facility] Daminanqot[address] [place] [address] [place] Platelets Auto #/vol (Bld) 356 103/ul Normal 150-450 [facility] Comment on above: Performed By: #### CBC ####[facility] Zjmkerlsgt[address] [place] [address] [place] RBC Auto #/vol (Bld) 4.29 106/ul Normal 4.20-5.40 [facility] Comment on above: Performed By: #### CBC ####[facility] Nappseyoga[address] [place] [address] [place] WBC Auto #/vol (Bld) 11.1 103/ul Critically high 4.0-11.0 [facility] Comment on above: Performed By: #### CBC ####[facility] Wqfekdpgoi[address] [place] [address] [place] PREG QUANT HCGon 04-23-2018 HCG QUANT <2.39 Normal [facility] Comment on above: Performed By: #### PREGQNT ####[facility] [address] [place] [address] [place] HCG RANGE SEE BELOW Normal [facility] Comment on above: Result Comment: 5-50 0-1 WEEK 40-300 1-2 WEEKS 100-1,000 2-3 WEEKS 500-6,000 3-4 WEEKS 5,000-200,000 1-2 MONTHS 10,000-100,000 2-3 MONTHS 3,000-50,000 2ND TRIMESTER 1,000-50,000 3RD TRIMESTER Performed By: #### P REGQNT ####[facility] Y[address] [place] [address] [place] CBC AUTO DIFFon 04-02-2018 Basophils Auto #/vol (Bld) 0.0 103/ul Normal 0.0-0.1 [facility] Comment on above: Performed By: #### CBC ####[facility] Dnlymwkkjn[address] [place] [address] [place] Basophils/100 WBC Auto (Bld) 0.5 % Normal 0.2-2.0 [facility] Comment on above: Performed By: #### CBC ####[facility] Pbfakshxed[address] [place] [address] [place] Eosinophils Auto #/vol (Bld) 0.3 103/ul Normal 0.0-0.7 [facility] Comment on above: Performed By: #### CBC ####[facility] [address]ks[address]obah[address] [place] [address] [place] Eosinophils/100 WBC Auto (Bld) 3.6 % Normal 0.9-7.0 [facility] Comment on above: Performed By: #### CBC ####[facility] Bl[address]dyjrqxv[address] [place] [address] [place] Erythrocyte distribution width Auto Ratio (RBC) 14.2 % Normal 11.0-15.0 [facility] Comment on above: Performed By: #### CBC ####[facility] [address]azjhil[address] [place] [address] [place] Hematocrit Auto Volume Fraction (Bld) 40.7 % Normal 36.0-48.0 [facility] Comment on above: Performed By: #### CBC ####[facility] A[address]frc[address] [place] [address] [place] Hemoglobin mass conc (Bld) 13.6 g/dL Normal 12.0-16.0 [facility] Comment on above: Performed By: #### CBC ####[facility] [address]aelnvndh[address] [place] [address] [place] IG # 0.02 10e3/ul Normal 0.00-0.03 [facility] Comment on above: Performed By: #### CBC ####[facility] Kelsvymqce9652 [address] [place] IG % 0.2 % Normal 0.0-0.5 [facility] Comment on above: Performed By: #### CBC ####[facility] F[address]qgkjecs[address] [place] [address] [place] Lymphocytes Auto #/vol (Bld) 1.9 103/ul Normal 1.2-3.8 [facility] Comment on above: Performed By: #### CBC ####[facility] Uh[address]bqqvk[address] [place] [address] [place] Lymphocytes/100 WBC Auto (Bld) 22.5 % Normal 20.5-60.0 [facility] Comment on above: Performed By: #### CBC ####[facility] Te[address]aeupku[address] [place] [address] [place] MANUAL DIFF REQ NO Normal [facility] Comment on above: Performed By: #### CBC ####[facility] Iduxmnxslr[address] [place] [address] [place] MCH Auto Entitic mass (RBC) 29.0 pg Normal 26.7-34.0 [facility] Comment on above: Performed By: #### CBC ####[facility] Zawxskkoya[address] [place] [address] [place] MCHC Auto mass conc (RBC) 33.4 g/dL Normal 29.9-35.2 [facility] Comment on above: Performed By: #### CBC ####[facility] [address]dx[address] [place] [address] [place] MCV Auto Entitic volume (RBC) 86.8 fL Normal 81.0-99.0 [facility] Comment on above: Performed By: #### CBC ####[facility] Edndlyqpyp[address] [place] [address] [place] Monocytes Auto #/vol (Bld) 0.7 103/ul Normal 0.3-0.8 [facility] Comment on above: Performed By: #### CBC ####[facility] I[address]qzjlj[address] [place], [place] [address] [place] Monocytes/100 WBC Auto (Bld) 8.9 % Normal 1.7-12.0 [facility] Comment on above: Performed By: #### CBC ####[facility] [address]ws[address] [place], [place] [address]Gyccse [place] Neutrophils Auto #/vol (Bld) 5.4 103/ul Normal 1.4-6.5 [facility] Comment on above: Performed By: #### CBC ####[facility] [address]beopjrdc[address]694 [place] [address]Gerken [place] Neutrophils/100 WBC Auto (Bld) 64.3 % Normal 43.0-75.0 [facility] Comment on above: Performed By: #### CBC ####[facility] Wmkrmoziir3743 [place] [address]Gerken [place] Platelet mean volume Auto Entitic volume (Bld) 9.2 fL Critically low 9.5-13.5 [facility] Comment on above: Performed By: #### CBC ####[facility] Mkmaavsxmx2[address] [place], [place] [address]Gerken [place] Platelets Auto #/vol (Bld) 327 103/ul Normal 150-450 [facility] Comment on above: Performed By: #### CBC ####[facility] Waayazrfie6006 [place], [place] [address]Mmsrtr [place] RBC Auto #/vol (Bld) 4.69 106/ul Normal 4.20-5.40 [facility] Comment on above: Performed By: #### CBC ####[facility] Nvcdtlvpqg8498 [place], [place] [address]Ukmovo [place] WBC Auto #/vol (Bld) 8.3 103/ul Normal 4.0-11.0 [facility] Comment on above: Performed By: #### CBC ####[facility] Zhgsnqucim6[address] [place], [place] [address]Ggxuok [place] TSHon 04-02-2018 Thyrotropin Qn 1.150 uIU/mL Normal 0.470-4.680 [facility] Comment on above: Performed By: #### TSH ####[facility] Qqdqbqssus7964 [place], [place] [address]Bxcegq [place] Thyrotropin Qn SEE BELOW Normal [facility] Comment on above: Result Comment: <0.34 UIU/ml HYPERTHYROI D 0.34-5.60 UIU/ml EUTHYROID >5.60 UIU/ml HYPOTHYROID Performed By: #### T SH ####[facility] [address]htz[address] [place], [place] [address]Wohtdl [place] US PELVIS AND TRANSVAGon US PELVIS AND TRANSVAG [address] [place] [address] Patient: ERNA JENKINS Exam Date: 03/14/2018DOB: 1990 Gender:F : DR KATHIE COLLINS . Admission #: [id number] : Order #: [id number] HERE TO VIEW EXAM RADIOLOGY REPORT PROCEDURE: [...] Richards M.D. on 03/14/2018 at 18:00 Normal [facility] PAP ACOG PANEL 2: 30 to 65on 02-28-2018 Age Gdln ACOG Testing 30-65 Normal [facility] Comment on above: Performed By: #### [id number] ####[facility] [address] [place] [address] COMMENT Comment Normal [facility] Comment on above: Result Comment: [id number] a t: WB Performed By: #### [id number] ####[facility] [address]xf[address]xy[address] [place] [address] DIAGNOSIS: Comment Normal [facility] Comment on above: Result Comment: NEGATIVE FOR INTRAEPITHE LIAL LESION AND MALIGNANCY.THIS SPECIMEN WAS RESCREENED PART OF OUR CREDIT AND COLLECTION MANAGER PROGRAM.Performed at: WB Performed By: #### [id number] ####[address] HPV Aptima Negative Normal Negative [facility] Comment on above: Result Comment: This test was developed and its performance characteristicsdetermined by [employer]. It has not been cleared or approvedby the Food and Drug Administration.This test detects fourteen high-risk HPV types (16/18/31/33/35/39/45/51/52/56/58/59/66/68) without differentiation.Performed at: =G Performed By: #### [id number] ####[address] Methodology: Comment Normal [facility] Comment on above: Result Comment: This liquid based SurePa th(R) pap test was screened with theassistance of an image guided system.Performed at: WB Performed By: #### [id number] ####[facility] [address] [place] [address] Note: Comment Normal [facility] Comment on above: Result Comment: The Pap smear is a scree blayne test designed to aid in the detection ofpremalignant and malignant conditions of the uterine cervix. It is not adiagnostic procedure and should not be used as the sole means of detectingcervical cancer. Both false-positive and false-negative reports do occur. .Performed at: WB Performed By: #### [id number] ####[facility] Encwyulamm1647 [address] [place] Performed by: Comment Normal [facility] Comment on above: Result Comment: Maryjane Moss Cytote chnologist (ASCP)Performed at: WB Performed By: #### [id number] ####[facility] Bpnihegfok2479 [address] [place] QC reviewed by: Comment Normal [facility] Comment on above: Result Comment: Patsy Hernandez Cytot echnologist (ASCP)Performed at: WB Performed By: #### [id number] ####[facility] [address] [place] [address] [place] Specimen adequacy: Comment Normal [facility] Comment on above: Result Comment: Satisfactory for evaluat ion. Endocervical and/or squamous metaplasticcells (endocervical component) are present.Performed at: WB Performed By: #### [id number] ####[facility] [address] [place] [address] [place] . . Normal [facility] Comment on above: Result Comment: Performed at: WB Performed By: #### [id number] ####[facility] [address] [place] [address] [place] CHLAMYDIA/GONOCOCCUS FLOWER W/C ONF. (SWAB/Uon 11-12-2017 Chlamydia Trach FLOWER Negative Normal Negative [facility] Comment on above: Performed By: #### CT/NGNA ####[facility] [facility] [id number] [place] [address] Bernadette N. Gonorrhoeae FLOWER Negative Normal Negative [facility] Comment on above: Performed By: #### CT/NGNA ####[facility] [address] [place] [address] Bernadette VAGINITIS/VAGINOSIS DNA PROB Mario 11-11-2017 Adeline species Negative Normal Negative [facility] Comment on above: Performed By: #### VAGINT ####[facility] ospital [address] [place] [address] Bernadette Gardnerella vaginalis Negative Normal Negative [facility] Comment on above: Performed By: #### VAGINT ####[facility] [address] [place], [place] [address]YfzgqkHilario Fleming Trichomonas vaginalis Negative Normal Negative [facility] Comment on above: Performed By: #### VAGINT ####[facility] [address] [place], [place] [address]WidvmzHilario Fleming Vital Signs Date Time Vital Sign Value Performing Clinician Faci lity 10-16-2023 14:04-0500 Body height 157.5 cm Jocelyn Ramirez DO Work Phone: [facility] [employer] [facility] 10-16-2023 14:04-0500 Body mass index (BMI) [Ratio] 20.85 kg/m2 Jocelyn Brownner DO Work Phone: [facility] 10-16-2023 14:04-0500 Body weight 51.71 kg Jocelyn Ashley DO Work Phone: [facility] [employer] [facility] 10-16-2023 14:04-0500 Diastolic blood pressure 81 mm[Hg] Jocelyn Brownner DO Work Phone: [facility] 10-16-2023 14:04-0500 Heart rate 75 /min Jocelyn Brownner DO Work Phone: [facility] 10-16-2023 14:04-0500 Respiratory rate 15 /min Jocelyn Ramirez DO Work Phone: [facility] [employer] [facility] 10-16-2023 14:04-0500 Systolic blood pressure 111 mm[Hg] Jocelyn Brownner DO Work Phone: [facility] [employer] [facility] Encounters Encounter Date Encounter Type Care Provider Facility Start: 10-25-2023 End: 10-26-2023 ambulatory JOCELYN Hipolito ASHLEY [facility] Start: 10-16-2023 End: 10-16-2023 Office outpatient new 45 minutes Jocelyn Hipolito Brownsiomara DO Work Phone: [facility] Comment on above: Mass of left thigh ( Primary Dx) Start: 10-16-2023 End: 10-16-2023 Orders Only Chika Juan [facility] Comment on above: Soft tissue mass (Pr imary Dx) Start: 09-28-2023 Telephone encounter Chika Martinez [facility] Start: 09-20-2023 Telephone encounter Chika Martinez [facility] Start: 04-23-2018 End: 04-25-2018 Evaluation and management of inpatient KATHIE KARINA Facility:H1 Start: 04-11-2018 Encounter for other preprocedural examination [facility] Start: 04-05-2018 End: 04-06-2018 Patient encounter procedure KATHIE KARINA Facility:H1 Start: 04-02-2018 End: 04-03-2018 Patient encounter procedure KATHIE KARINA Facility:H1 Start: 03-14-2018 End: 03-15-2018 Patient encounter procedure KATHIE KARINA Facility:H1 Start: 02-23-2018 End: 02-23-2018 Patient encounter procedure KATHIE KARINA Facility:H1 Start: 11-09-2017 End: 11-09-2017 Patient encounter procedure KATHIE KARINA Facility:H1 Encounter for other preprocedural examination [facility] Procedures Date Procedure Procedure Detail Performing Clinician Start: 04-23-2018 Resection of Bilater al Fallopian Tubes, Open Approach KATHIE KARINA Start: 04-23-2018 Resection of Uterus, Open Approach KATHIE KARINA Plan of Treatment Date Care Activity Detail Author Start: 10-16-2024 Adult BMI Screening Adult BMI Screen ing [facility] Start: 06-09-2024 Tobacco Counseling Tobacco Counselin g [facility] Start: 12-08-2023 Adult BMI Screening Adult BMI Screen ing [facility] Start: 12-08-2023 Tobacco Screening Tobacco Screening [facility] Start: 11-02-2023 End: 11-02-2023 Patient encounter procedure 11/02/2023 1:00 PM EST Office Visit [facility] [address] [place] [id number] Jocelyn Ramirez, DO [address] [facility] [place], [place] [id number] [facility] Start: 10-25-2023 End: 10-25-2023 Patient encounter procedure 10/25/2023 8:45 AM EST Appointment [facility] [address] [place] [id number] [facility] Start: 10-16-2023 End: 10-16-2024 MR Thigh - left WO and W contrast IV MR thigh left with and without contrast Imaging Routine Soft tissue mass Expected: 10/16/2023, Expires: 10/16/2024 [facility] Work Phone: Comment on above: Expected: 10/16/2023 , Expires: 10/16/2024 Start: 05-26-2023 Influenza vaccination Influenza Vacc ine [facility] Start: 02-10-2007 DTaP,Tdap and Td Vaccines (1 - Tdap) DTaP,Tdap and Td Vaccines (1 - Tdap) [facility] Start: 2000 Depression Screening Depression Scre [facility] Payers Date Payer Category Payer Medicaid [employer] [place] [id number] 2023-Present [phone] [address] [place] [address] [id number] 1988 Unknown [id number] 1988 Unknown [id number] 1988 Unknown [id number] 1988 Unknown [id number] 1988 Unknown [id number] 1988 Unknown [id number] 1988 Unknown [id number] 1988 Unknown [id number] 1959 Unknown [id number] Social History Date Type Detail Facility Start: 12-07-2022 Tobacco smoking stat [facility] Smokes tobacco daily [facility] History of tobacco use Cigarette Smoker P [facility] Start: 11-04-2020 End: 12-07-2022 Cigarettes smoked current (pack per day) - Reported 1 [facility] Start: 12-07-2022 Tobacco use and exposure Smoke less tobacco non-user [facility] Start: 12-07-2022 Alcohol intake Current drinke r of alcohol (finding) [facility] Start: 11-04-2020 End: 12-07-2022 Tobacco use panel [facility] Housing Instability Unknown [facility] Start: 11-05-2017 Alcohol Comment OCCASIONAL [facility] Start: 1990 Sex Assigned At Not on file P [facility] History of Present illness Narrative 10-16-2023 Jocelyn Ramirez DO - 10/16/2023 2:00 PM EST Note Date & Type Note Facility 10-16-2023 History of Present illness Narrative Images from the original note were not included. Outpatient Clinic HISTORY and PHYSICAL Chief Complaint: left inner thigh mass History of Present Illness: Erna Lentz is a 33 y.o. female with past medical history of asthma and anxiety who presents with a left inner thigh mass for 3 years. The mass began pimple-sized, then progressed to marble-sized for several months; since then it has grown to its current size. The patient says the mass is occasionally painful and warm. Recently it has been itching. She has no other similar masses. Pt denies fever, chills, shortness of breath, and nausea. Review of Systems Constitutional: Negative for fever and chills. Respiratory: Negative for shortness of breath. Gastrointestinal: Negative for nausea. Musculoskeletal: Left inner thigh mass, painful and warm at times. Itchy. Past Medical History: Diagnosis Date Anxiety Asthma Gastritis Migraines Past Surgical History: Procedure Laterality Date BREAST LUMPECTOMY EXPLORATORY LAPAROTOMY HYSTERECTOMY NOSE SURGERY TUBAL LIGATION Allergies Allergen Reactions Macrobid [Nitrofurantoin Monohyd/M-Cryst] Sulfa (Sulfonamide Antibiotics) Current Outpatient Medications: albuterol (PROVENTIL HFA;VENTOLIN HFA) 90 mcg/actuation inhaler, Inhale 2 puffs every 6 (six) hours as needed for wheezing., Disp: 18 g, Rfl: 2 DULoxetine (CYMBALTA) 30 mg capsule, take 1 capsule by mouth every morning, Disp: 30 capsule, Rfl: 1 Social History Socioeconomic History Marital status: Spouse name: Not on file Number of children: Not on file Years of education: Not on file Highest education level: Not on file Occupational History Not on file Tobacco Use Smoking status: Every Day Packs/day: 1.00 Years: 10.00 Additional pack years: 0.00 Total pack years: 10.00 Types: Cigarettes Smokeless tobacco: Never Vaping Use Vaping Use: Never used Substance and Sexual Activity Alcohol use: Yes Comment: OCCASIONAL Drug use: Yes Types: Marijuana Sexual activity: Yes Other Topics Concern Not on file Social History Narrative Not on file Social Determinants of Health Financial Resource Strain: Not on file Food Insecurity: Not on file Transportation Needs: Not on file Physical Activity: Not on file Stress: Not on file Social Connections: Not on file Interpersonal Safety: Not on file Physical Exam Constitutional: Appearance: Normal appearance. HENT: Head: Normocephalic and atraumatic. Pulmonary: Effort: Pulmonary effort is normal. Musculoskeletal: Comments: 3x5 cm firm mobile mass on the upper inner left thigh. Firmer nodules palpated within the mass on the lateral aspect. Skin: General: Skin is warm and dry. Neurological: Mental Status: She is alert. Psychiatric: Behavior: Behavior normal. Vital Signs: Blood pressure 111/81, pulse 75, resp. rate 15, height 157.5 cm (5' 2 ), weight 51.7 kg (114 lb), last menstrual period 10/14/2017. Respiratory Source: No data recorded Admission Weight: Weight: 51.7 kg (114 lb) Labs: Lab Results Component Value Date WBC 9.3 12/14/2022 HGB 14.4 12/14/2022 HCT 42.4 12/14/2022 MCV 92 12/14/2022 PLT 325 12/14/2022 Lab Results Component Value Date GLU 94 12/14/2022 CALCIUM 8.9 12/14/2022 K 4.2 12/14/2022 CO2 27 12/14/2022 CL 105 12/14/2022 BUN 8 12/14/2022 CREATININE 0.58 12/14/2022 No results found for: AMYLASE Lab Results Component Value Date LIPASE 49 02/01/2016 Lab Results Component Value Date ALT 13 12/14/2022 AST 15 12/14/2022 ALKPHOS 49 12/14/2022 Assessment: Erna Lentz is a 33 y.o.female referred for inner left thigh mass onset 3 years ago that is growing in size. Given irregularity and firmness of mass, further imaging is necessary before excision. Plan: Ordered MRI of left thigh with and without contrast to assess left thigh mass. F/U in office after MRI. Alvina Gonzalez, MS3 General Surgery Attending Attestation: I saw the patient. I participated and was physically present during the critical/muller portions of the service. I was directly involved in the management and treatment plan of the patient. I reviewed the resident's note. Additional Notes/Findings: Patient seen and examined. Patient with a firm 5 cm mass along her left inner thigh. It does not appear fixed to the underlying structures. Patient states that this has been there for about 3 years but has increased in size. Patient underwent ultrasound of the mass which demonstrated it was complex in solid with blood flow and recommended biopsy versus surgical excision. I discussed at length with the patient here in the office plan going forward. Will proceed with an MRI of her left thigh to further evaluate the mass. Further recommendations pending MRI imaging. Jocelyn Ramirez D.O. documented in this encounter [facility] Note 09-28-2023 Telephone Encounter - Chika Martinez CMA - 09/28/2023 4:15 PM EST Note Date & Type Note Facility 09-28-2023 Miscellaneous Notes Formattin g of this note might be different from the original. Called patient on 09-15-23@ 11:30 am. Phone was DC. So I called the other two numbers on patient file. (Mother and SO) Left a message on both numbers. Called patient again on 09-22-23. Phone number still DC and I spoke to mom and she said that she would have daughter call us if she spoke with her. I also left a message on the SO phone as well. Called patient again on 09-28-23 @ 4:15p phone is still DC. I also called the SO his response to me was Rena and I are I told him that she still had him on her emergency contact list. He responded ith yeannette sucks to be her, take me off he then hung up the phone. I then called her mom and spoke with her, she said I have sent message after message to get her, she isnt speaking to me. I explained to mom well just let her know that we tried to get in touch with her and she will need another referral or she can call us back for an appointment. Mom voiced understanding documented in this encounter [facility] Telephone encounter Note 09-28-2023 Telephone Encounter - Chika Martinez CMA - 09/28/2023 4:15 PM EST Note Date & Type Note Facility 09-28-2023 Telephone encounter Note Called patient on 09-15-23@ 11:30 am. Phone was DC. So I called the other two numbers on patient file. (Mother and SO) Left a message on both numbers. Called patient again on 09-22-23. Phone number still DC and I spoke to mom and she said that she would have daughter call us if she spoke with her. I also left a message on the SO phone as well. Called patient again on 09-28-23 @ 4:15p phone is still DC. I also called the SO his response to me was Erna and I are I told him that she still had him on her emergency contact list. He responded ith yeannette sucks to be her, take me off he then hung up the phone. I then called her mom and spoke with her, she said I have sent message after message to get her, she isnt speaking to me. I explained to mom well just let her know that we tried to get in touch with her and she will need another referral or she can call us back for an appointment. Mom voiced understanding [facility] 09-20-2023 Telephone Encounter - Chika Martinez CMA - 09/20/2023 4:13 PM EST Note Date & Type Note Facility 09-20-2023 Miscellaneous Notes Formattin g of this note might be different from the original. Trying to call patient to get scheduled for a RN CLINICAL APPEALS appointment. Have called all 3 numbers on patient chart.Patient phone number disconnected an left a vm on the other two for patient to call us back. documented in this encounter [facility] [employer] [facility] Telephone encounter Note 09-20-2023 Telephone Encounter - Chika Martinez CMA - 09/20/2023 4:13 PM EST Note Date & Type Note Facility 09-20-2023 Telephone encounter Note Trying to call patient to get scheduled for a RN CLINICAL APPEALS appointment. Have called all 3 numbers on patient chart.Patient phone number disconnected an left a vm on the other two for patient to call us back. [facility] [employer] [facility] Evaluation note Note Date & Type Note Facility Evaluation note Diagnosis Soft tissue mass- Primary Disorders of soft tissue, unspecified documented in this encounter [facility] [employer] [facility] Evaluation note Note Date & Type Note Facility Evaluation note Diagnosis Mass of left thigh- Primary documented in this encounter [facility] [employer] [facility] Instructions Note Date & Type Note Facility Instructions Not on filedocumented in this en counter [facility] Instructions Note Date & Type Note Facility Instructions Not on filedocumented in this en counter [facility] Instructions Attachments Note Date & Type Note Facility Instructions The following attachments cannot be sent through Care Everywhere.Epidermal Cyst Discharge Instructions (Rwandan)documented in this encounter [facility] Summary Purpose Family History No Family History Records FoundNo Family History Records FoundNo Family History Records Found Advance Directives No Advanced Directives Records FoundNo Advanced Directives Records FoundNo Advanced Directives Records Found Hospital Course Note DISCHARGE SUMMARYDischarge D ate: 0-3-30ZRAYZCF DIAGNOSIS:1. Menometrorrhagia.2. Dysmenorrhea.3. Dyspareunia.4. Pelvic pain.PROCEDURE: Total [...] unrelieved byTylenol, any abdominal pain unrelieved with narcotics.[facility] Signed and Approved by: DR KATHIE COLLINS .05/03/2018 14:20:00 Reason for Referral Specialty Diagnoses / Procedures Referred By Isaias aguayo Referred To Contact Radiology Diagnoses Soft tissue mass Procedures MR thigh left with and without contrast Jocelyn Ramirez, DO [address] [place] [address] [facility] [address] [place] [address] Phone: [phone] Referral ID Status Reason Start Date Expiration Date V isits Requested Visits Authorized [id number] Pending Review 10/16/2023 10/15/2024 1 1 Additional Source Comments INFORMATION SOURCE (unrecogn ized section and content) DATE CREATED AUTHOR 09/02/2018 [facility] DATE CREATED AUTHOR AUTHOR'S ORGANIZ ATION 10/18/2023 [facility] DATE CREATED AUTHOR AUTHOR'S ORGANIZ ATION 10/29/2023 [facility] Care Teams (unrecognized sec tion and content) Route Sales Delivery Drivers Supervisor Relationship Specialty Start Date End Date Kyra Reyes APRN-FNP [address] [place] [address] PCP - General Family Medicine 09/05/23 Route [employer] Delivery Drivers Supervisor Relationship Specialty Start Date End Date Kyra ReyesALEKSANDER-KAM [address] [place] [address] PCP - General Family Medicine 09/05/23 Route Sales Delivery Drivers Supervisor Relationship Specialty Start Date End Date ClaribelKyra TitusTRE [address] [place] [address] PCP - General Family Medicine 09/05/23 Reason for Visit (unrecogniz ed section and content) Reason Comments Mass Left inner thigh 3Ye ars FOR RECORDS PERTAINING TO PATIENTS WHO ARE [...] BE BASED ON THE PRIMARY CLINICAL RECORDS. [employer] provides no warranty or guarantee of the accuracy or completeness of information in this document.
[2024-03-25] MEDS: PREDNISONE 20 MG TABLET 40 MG PO (18:54)
[2024-03-25] MEDS: DIPHENHYDRAMINE HCL 25 MG CAPSULE 50 MG PO (18:58)
[2024-03-25 19:06] VITALS: BP 160/100; PULSE 65; O2SAT 98
--- NOTE | 2024-03-25 19:17 | ED_ITS ---
HPI HPI - General Adult General Chief complaint: Wound/Laceration Stated complaint: Sting/Bite Time Seen by Provider: 03/25/24 18:23 Source: patient Mode of arrival: walk-in Limitations: no limitations History of Present Illness HPI narrative: This 34-year-old female was signed out to me at shift change. She has several insect stings versus bee stings on her hand, buttock and foot. She was medicated emergency department with prednisone and Benadryl. On reevaluation she is resting comfortably. Her vital signs are stable. There is no sign of anaphylaxis. She states she is still having some sensation that she is still being stung. I do not appreciate any stingers in her foot, buttock or hand area where she was stung. She was instructed to use Benadryl and ice at home and will be discharged home with a prescription for prednisone to use for the next 5 days. Related Data Previous Rx's ?Medication ?Instructions ?Recorded cephalexin 500 mg capsule 500 mg PO Q8H 10 days #30 caps 07/13/23 hydrocodone 5 mg-acetaminophen 325 1 tab PO Q4H PRN pain #15 tabs 07/13/23 mg tablet ondansetron 4 mg disintegrating 4 mg PO Q6H PRN nausea and 07/13/23 tablet vomiting #12 tabs sulfamethoxazole 800 1 tab PO BID 10 days #20 tabs 07/13/23 mg-trimethoprim 160 mg tablet (Bactrim DS) Allergies Allergy/AdvReac Type Severity Reaction Status Date / Time nitrofurantoin Allergy Intermediate Hives Verified 03/25/24 18:27 [From Macrobid] Sulfa (Sulfonamide Allergy Intermediate Hives Verified 03/25/24 18:27 Antibiotics) Opioid HPI Opioid Management Most Recent Opioid Data: Last Pain Scale 8 03/25/24 18:43 PFSH PFSH Social History Smoking status: Current every day smoker Exam Constitutional Vital Signs, click to edit/add: Last Vital Signs Temp 98.1 F 03/25/24 18:28 Pulse 65 03/25/24 19:06 Resp 16 03/25/24 19:06 BP 160/100 H 03/25/24 19:06 Pulse Ox 98 03/25/24 19:06 O2 Del Method Room Air 03/25/24 19:06 Course Vital Signs Vital signs: Vital Signs Temperature 98.1 F 03/25/24 18:28 Pulse Rate 101 H 03/25/24 18:28 Respiratory Rate 16 03/25/24 18:28 Blood Pressure 84/53 L 03/25/24 18:28 Pulse Oximetry 98 03/25/24 18:28 Oxygen Delivery Method Room Air 03/25/24 18:28 Temperature 98.1 F 03/25/24 18:28 Pulse Rate 65 03/25/24 19:06 Respiratory Rate 16 03/25/24 19:06 Blood Pressure 160/100 H 03/25/24 19:06 Pulse Oximetry 98 03/25/24 19:06 Oxygen Delivery Method Room Air 03/25/24 19:06 Discharge Plan Discharge Stand Alone Forms: Portal Instructions Chief Complaint: Wound/Laceration Clinical Impression: Insect sting Patient Disposition: Home, Self-Care Time of Disposition Decision: 19:15 Condition: Good Prescriptions / Home Meds: No Action hydrocodone-acetaminophen 5-325 mg tablet 1 tab PO Q4H PRN (Reason: pain) Qty: 15 0RF Rx Instructions: DX: L03.90 sulfamethoxazole-trimethoprim [Bactrim DS] 800-160 mg tablet 1 tab PO BID 10 Days Qty: 20 0RF cephalexin 500 mg capsule 500 mg PO Q8H 10 Days Qty: 30 0RF ondansetron 4 mg tablet,disintegrating 4 mg PO Q6H PRN (Reason: nausea and vomiting) Qty: 12 0RF Print Language: Icelandic Instructions: Insect Bite or Sting (ED) Referrals: [facility] [Primary Care Provider] - 1 week
== END 2024-03-25 19:25 | disposition home or self-care (01) ==
PROVIDERS: Emergency Provider Emergency Medicine
DX: T63.481A Toxic effect of venom of other arthropod, accidental (unintentional), initial encounter (principal)
CPT/HCPCS: 99283; J7512

== ENCOUNTER 2024-10-02 04:24 | Observation (INO) | payer OTHER, SELFPAY ==
[2024-10-02] VITALS (7 sets, daily range): BP systolic 119–157; BP diastolic 78–100; PULSE 70–88; TEMP 36.4–37.1; O2SAT 94–100; BMI 21.0
[2024-10-02] MEDS: ONDANSETRON PF 4 MG/2 ML VIAL IV ×2 (05:09→10:06)
[2024-10-02] MEDS: 0.9 % SODIUM CHLORIDE 1,000 ML 1000 ML IV ×2 (05:10→13:48)
[2024-10-02 05:24] LABS: Hematocrit 48.9 % (36.0-48.0); Hemoglobin 16.6 g/dL (12.0-16.0); Mean Corpuscular HGB Conc 33.9 g/dL (29.9-35.2); Mean Corpuscular Hemoglobin 30.2 pg (26.7-34.0); Mean Corpuscular Volume 88.9 fL (81.0-99.0); Mean Platelet Volume 10.1 fL (9.5-13.5); Platelet Count 417 10^3/uL (150-450); Red Cell Distribution Width 13.1 % (11.0-15.0); White Blood Count 30.1 10^3/uL (4.0-11.0)
--- NOTE | 2024-10-02 05:24 | ED.NAVMDI1 ---
HPI - Nausea/Vomiting/Diarrhea General Chief complaint: Nausea/Vomiting/Diarrhea Stated complaint: NAUSEA, VOMITING Time Seen by Provider: 10/02/24 04:32 Source: patient Mode of arrival: ambulance Limitations: no limitations History of Present Illness HPI Narrative: 34-year-old female presents to the emergency department for nausea vomiting and diarrhea which began yesterday. She states that multiple family members have the same issue. She is complaining of abdominal cramping as well. Related Data Previous Rx's ?Medication ?Instructions ?Recorded cephalexin 500 mg capsule 500 mg PO Q8H 10 days #30 caps 07/13/23 hydrocodone 5 mg-acetaminophen 325 1 tab PO Q4H PRN pain #15 tabs 07/13/23 mg tablet ondansetron 4 mg disintegrating 4 mg PO Q6H PRN nausea and 07/13/23 tablet vomiting #12 tabs sulfamethoxazole 800 1 tab PO BID 10 days #20 tabs 07/13/23 mg-trimethoprim 160 mg tablet (Bactrim DS) Allergies Allergy/AdvReac Type Severity Reaction Status Date / Time nitrofurantoin (From Allergy Intermediate Hives Verified 10/02/24 04:34 Macrobid) Sulfa (Sulfonamide Allergy Intermediate Hives Verified 10/02/24 04:34 Antibiotics) Review of Systems ROS Narrative A ten point review of systems is negative except as noted above. PFSH PFS Social History Smoking status: Current every day smoker Little interest or pleasure in doing things: not at all Feeling down, depressed, or hopeless: not at all Exam Narrative Exam Narrative: Nurses note and vital signs reviewed and patient is not hypoxic. General: The patient appears well and in no apparent distress. Patient is resting comfortably on cart. Skin: Warm, dry, no pallor noted. There is no rash noted. Head: Normocephalic, atraumatic Eye: Normal conjunctiva, no drainage Ears, Nose, Mouth, and Throat: oral mucosa is moist. Nares patent. Cardiovascular: Regular Rate and Rhythm Respiratory: Patient is in no distress, no accessory muscle use, lungs are clear to auscultation, no wheezing, rales or rhonchi Back: non-tender GI: Soft and nondistended. No masses. Mild diffuse tenderness Musculoskeletal: The patient has no evidence of calf tenderness, no pitting edema, symmetrical pulses noted bilaterally Neurological: A&O, normal speech Psychiatric: Cooperative Constitutional Vital Signs, click to edit/add: Last Vital Signs Temp 98.5 F 10/02/24 06:48 Pulse 88 10/02/24 06:48 Resp 16 10/02/24 06:48 BP 142/83 H 10/02/24 06:48 Pulse Ox 100 10/02/24 06:48 O2 Del Method Room Air 10/02/24 06:48 Course Vital Signs Vital signs: Vital Signs Pulse Rate 72 10/02/24 04:28 Respiratory Rate 22 H 10/02/24 04:28 Blood Pressure 157/100 H 10/02/24 04:28 Pulse Oximetry 100 10/02/24 04:28 Oxygen Delivery Method Room Air 10/02/24 04:28 Temperature 98.5 F 10/02/24 06:48 Pulse Rate 88 10/02/24 06:48 Respiratory Rate 16 10/02/24 06:48 Blood Pressure 142/83 H 10/02/24 06:48 Pulse Oximetry 100 10/02/24 06:48 Oxygen Delivery Method Room Air 10/02/24 06:48 MDM - Nausea/Vomiting/Diarrhea MDM Narrative Medical decision making narrative: WBC is elevated at 30,000. Stool was sent for C. difficile and culture and is positive for blood. CAT scan is ordered and the result is pending and the patient is signed out to Dr. Mireles at change of shift. Differential Diagnosis Differential diagnosis: Likely food poisoning, gastroenteritis, dehydration and other (Colitis, duodenitis) Lab Data Attestation: I reviewed the patient's lab results. Labs: Lab Results 10/02/24 10/02/24 10/02/24 Range/Units 05:20 05:55 06:00 WBC 30.1 H (4.0-11.0) 10^3/uL RBC 5.50 H (4.20-5.40) 10^6/uL Hgb 16.6 H (12.0-16.0) g/dL Hct 48.9 H (36.0-48.0) % MCV 88.9 (81.0-99.0) fL MCH 30.2 (26.7-34.0) pg MCHC 33.9 (29.9-35.2) g/dL RDW 13.1 (11.0-15.0) % Plt Count 417 (150-450) 10^3/uL MPV 10.1 (9.5-13.5) fL Seg Neuts % (Manual) 88.0 H (43.0-75.0) Band Neutrophils % 8.0 H (0-5) % Lymphocytes % (Manual) 3.0 L (20.5-60.0) % Monocytes % (Manual) 2.0 (1.7-12.0) % Eosinophils % (Manual) 0.0 L (0.9-7.0) % Basophils % (Manual) 0.0 L (0.2-2.0) % Neutrophils # (Manual) 26.48 H (1.4-6.5) 10^3/uL Band Neutrophils # 2.4 H (0.0-0.3) 10^3/uL Lymphocytes # (Manual) 0.90 L (1.20-3.80) 10^3/uL Abs Atypical Lymphs Man 0.00 Monocytes # (Manual) 0.60 (0.30-0.80) 10^3/uL Eosinophils # (Manual) 0.00 (0.00-0.70) 10^3/uL Basophils # (Manual) 0.00 (0.00-0.10) 10^3/uL Toxic Vacuolation 2+ Sodium 143 (136-145) mmol/L Potassium 3.0 L (3.5-5.1) mmol/L Chloride 105 (98-107) mmol/L Carbon Dioxide 21.2 (21.0-32.0) mmol/L Anion Gap 19.8 BUN 10.0 (7.0-18.0) mg/dL Creatinine 0.98 (0.55-1.02) mg/dL Est GFR ( Amer) >60 (>=60 mL/min/1.73m^2) Est GFR (Non-Af Amer) >60 (>=60 mL/min/1.73m^2) BUN/Creatinine Ratio 10.2 Glucose 169 H (74-106) mg/dL Calcium 9.2 (8.5-10.1) mg/dL Stool Occult Blood Positive A Discharge Plan Discharge Chief Complaint: Nausea/Vomiting/Diarrhea Clinical Impression: Nausea, vomiting, and diarrhea, Leukocytosis Patient Disposition: Still a Patient Prescriptions / Home Meds: No Action hydrocodone-acetaminophen 5-325 mg tablet 1 tab PO Q4H PRN (Reason: pain) Qty: 15 0RF Rx Instructions: DX: L03.90 sulfamethoxazole-trimethoprim [Bactrim DS] 800-160 mg tablet 1 tab PO BID 10 Days Qty: 20 0RF cephalexin 500 mg capsule 500 mg PO Q8H 10 Days Qty: 30 0RF ondansetron 4 mg tablet,disintegrating 4 mg PO Q6H PRN (Reason: nausea and vomiting) Qty: 12 0RF Print Language: Telugu Referrals: [facility] [Primary Care Provider] - 1 week
[2024-10-02] MEDS: DICYCLOMINE HCL 20 MG/2 ML VIAL IM (05:28)
--- NOTE | 2024-10-02 05:34 | CT_ITS ---
[address] [address] Patient Name: AMANDA FINN MRN: [id number] date: 1990 Sex: F Assigned Patient Location: ED.MAIN Current Patient Location: Accession/Order Number: [id number] Exam Date: 10/02/2024 06:20 Report Date: 10/02/2024 06:45 At the request of: BON ROE Procedure: CT abdomen pelvis w con EXAMINATION: CT abdomen pelvis w con HISTORY: Nausea vomiting and diarrhea and WBC 30,000 COMPARISON: No relevant comparison available. TECHNIQUE: Axial, Coronal, and Sagittal images were obtained without and/or with IV contrast as indicated by examination type. Dose reduction techniques were achieved by using automated exposure control and/or adjustment of mA and/or kV according to patient size and/or use of iterative reconstruction technique. FINDINGS: LUNG BASES: No visible pulmonary or pleural disease. LIVER: No enlargement, atrophy, suspicious density, or significant focal lesion. BILIARY: No dilatation or calcification. PANCREAS: No lesion, fluid collection, or abnormal duct dilatation. SPLEEN: No enlargement or focal lesion. ADRENALS: No mass or enlargement. KIDNEYS: No mass, obstruction, or calcification. BOWEL/MESENTERY: Fluid-filled loops of small bowel without obstruction or appreciable inflammatory changes. Fluid within proximal colon and relatively empty mid and distal colon. No visible mass, obstruction, or bowel wall thickening. Normal appendix. AORTA/VASCULAR: No aneurysm or dissection. RETROPERITONEUM: No mass or adenopathy. LYMPH NODES: No adenopathy. URINARY BLADDER: No visible focal wall thickening, lesion, or calculus. PELVIC ORGANS: Hysterectomy. ABDOMINAL WALL: No mass or hernia. BONES: No bony lesion or fracture. OTHER: Negative. CT/CT abdomen pelvis w con IMPRESSION: 1. Fluid-filled loops of small bowel without wall thickening or obstruction; possible enteritis. Electronically authenticated by: NABILA GARCIA Date: 10/02/2024 06:45
[2024-10-02] MEDS: LORAZEPAM 2 MG/ML VIAL 0.5 MG IV (05:45)
[2024-10-02 06:05] LABS: Band Neutrophils Absolute 2.4 10^3/uL (0.0-0.3); Segmented Neut Absolute Manual 26.48 10^3/uL (1.4-6.5); Toxic Vacuolation 2+
--- NOTE | 2024-10-02 06:06 | PC.NURSE ---
While starting patient's IV, she began vomiting and was also unable to hold her bowels and had episode of incontinence in the bed. IV access was gained, bedside commode was brought into the room and patient was gotten up to the commode. Bedding was changed and patient was eventually moved back into the bed. She is put into a pull up incase of further incontinence. Stool is sent for culture due to appearance and odor. Generalized abdominal pain is increasing and persists as does nausea and vomiting.
[2024-10-02 06:19] LABS: Internal Control Within Normal Limits; Occult Blood Positive
[2024-10-02 06:33] LABS: Anion Gap 19.8; BUN Creatinine Ratio 10.2; Calcium 9.2 mg/dL (8.5-10.1); Carbon Dioxide 21.2 mmol/L (21.0-32.0); Chloride 105 mmol/L (98-107); Estimated GFR (African America >60 (>=60 mL/min/1.73m^2); Estimated GFR (Non-African Ame >60 (>=60 mL/min/1.73m^2); Glucose 169 mg/dL (74-106); Sodium 143 mmol/L (136-145)
[2024-10-02] MEDS: METRONIDAZOLE/SODIUM CHLORIDE 500 MG/100 ML PREMIX 100 MG IV ×2 (08:55→16:44)
[2024-10-02] MEDS: LACTATED RINGER'S SOLUTION 1,000 ML 125 ML IV ×2 (08:55→21:32)
[2024-10-02] MEDS: CEFTRIAXONE 1,000 MG in 0.9 % SODIUM CHLORIDE 50 ML 100 MG IV (09:52)
[2024-10-02] MEDS: HYOSCYAMINE SULFATE 0.125 MG TAB.SUBL SL (10:57)
[2024-10-02] MEDS: PROMETHAZINE HCL 25 MG in 0.9 % SODIUM CHLORIDE 50 ML 204 MG IV (10:59)
--- NOTE | 2024-10-02 11:33 | CM.NOTE ---
Rounds made with Dr. Pierson. Dr. Pierson asking for nurses to give dose of Zofran IV due to emesis.
--- NOTE | 2024-10-02 13:23 | P.HP_ITS ---
HPI H&P: HPI History of Present Illness Chief complaint: NAUSEA, VOMITING, ENTERITIS, LEUKOCYTOSIS Narrative: 34 y o female with no sig PMHX presented to ED with intractable nausea and vomiting, watery diarrhea with blood in it for 1-2 days. She also has associated abdominal pain that's usually after throwing up. Denies fever/chills but feels exhausted and is worn out because of current illness. She reports several family members had GI symptoms but none got sick enough to seek medical attention. Work up in ED revealed leukocytosis with wbc of [address] K [address] abd. When I first saw her, she was throwing up in emesis bowl, and had a BM while throwing up. Opioid HPI Opioid Management Most Recent Pain and Opioid Data: Last Pain Scale 7 10/02/24 11:00 10/02/24 Last Pain Assessment 10/02/24 11:00 Last ORT Total Score 2 10/02/24 07:54 10/02/24 Last ORT Risk Category Low Risk 10/02/24 07:54 10/02/24 Review of Systems ROS Status of ROS 10 or more systems reviewed and unremark able except as noted in history and below PFSH PFSH Medical History (Updated 10/02/24 @ 13:30 by Shaikh Kenna MD) Fibromyalgia ?M79.7 - Fibromyalgia (ICD-10) Asthma ?J45.909 - Unspecified asthma, uncomplicated (ICD-10) Surgical History (Updated 10/02/24 @ 09:39 by Juliet Machuca) H/O exploratory laparotomy ?Z98.890 - Other specified postprocedural states (ICD-10) H/O: hysterectomy ?Z90.710 - Acquired absence of both cervix and uterus (ICD-10) Family History (Updated 10/02/24 @ 09:40 by Juliet Machuca) Father Family history of CHF (congestive heart failure) Family history of myocardial infarction Grandmother Family history of cancer Mother Family history of diabetes mellitus Social History (Updated 10/02/24 @ 09:42 by Juliet Machuca) Within the past year, how often did you have a drink containing alcohol: never Score interpretation: A score less than 3 is consistent with normal alcohol consumption. Smoking status: Current every day smoker Non-prescribed substance use: cannabis (any form) Previous occupational history: unemployed Highest level of school completed/degree received: high school graduate Are you now , , , , never or living with a partner: living with partner Little interest or pleasure in doing things: not at all Feeling down, depressed, or hopeless: not at all Meds Home Medications and Allergies Home Medications ?Medication ?Instructions ?Recorded ?Confirmed ?Type albuterol sulfate 90 mcg/actuation 1 inh inhalation Q4H PRN shortness 10/02/24 10/02/24 History aerosol inhaler of breath or wheezing duloxetine 30 mg capsule,delayed 30 mg PO DAILY 10/02/24 10/02/24 History release Allergies Allergy/AdvReac Type Severity Reaction Status Date / Time nitrofurantoin (From Allergy Intermediate Hives Verified 10/02/24 04:34 Macrobid) Sulfa (Sulfonamide Allergy Intermediate Hives Verified 10/02/24 04:34 Antibiotics) Exam Constitutional Vital Signs, click to edit/add: Last Vital Signs Temp 97.6 F 10/02/24 08:00 Pulse 70 10/02/24 08:00 Resp 18 10/02/24 08:00 BP 134/90 10/02/24 08:00 Pulse Ox 100 10/02/24 10:55 O2 Del Method Room Air 10/02/24 10:55 General appearance: cooperative, comfortable and ill appearing Respiratory Common normals: normal respiratory effort, no use of accessory muscles and clear to auscultation bilaterally Effort & inspection: able to speak in complete sentences Cardio Common normals: no JVD, regular rate, regular rhythm, S1 normal heart sound and S2 normal heart sound GI Common normals: Normal to inspection, nondistended, normoactive bowel sounds present, soft to palpation, non-tender and no hepatosplenomegaly Auscultation: hyperactive bowel sounds Extremity Common normals: normal to inspection and full ROM Neuro Common normals: oriented x3, moves all extremities, no focal motor deficits and no sensory deficits noted Psych Common normals: mental status grossly normal, thought process normal, denies homicidal ideation and denies suicidal ideation Results Labs Labs: Short CBC 10/02/24 Range/Units 05:20 WBC 30.1 H (4.0-11.0) 10^3/uL Hgb 16.6 H (12.0-16.0) g/dL Hct 48.9 H (36.0-48.0) % Plt Count 417 (150-450) 10^3/uL BMP 10/02/24 06:00 Sodium 143 Potassium 3.0 L Chloride 105 Carbon Dioxide 21.2 BUN 10.0 Creatinine 0.98 Glucose 169 H Calcium 9.2 Assessment and Plan Assessment and Plan (1) Enteritis: (2) Leukocytosis: Qualifiers: Leukocytosis type: leukemoid reaction Qualified Code(s): D72.823 - Leukemoid reaction (3) Nausea, vomiting, and diarrhea: Plan Patient presents with intractable nausea/vomiting and diarrhea. Unable to take PO and extremely nauseous. Feels weak/tired and exhausted due to dehydration. Will need IV hydration. Started on IVF at 125/hr. Evidence of Ilietis on CT scan - will treat empirically with IV rocephin/flagly. C diff testing is pending. Advance diet as tolerated. C/w zofran/promethazine as needed.
[2024-10-02 13:27] LABS: C. Difficile PCR NEGATIVE
[2024-10-02] MEDS: PANTOPRAZOLE SODIUM 40 MG VIAL IV (13:48)
[2024-10-03] MEDS: METRONIDAZOLE/SODIUM CHLORIDE 500 MG/100 ML PREMIX 100 MG IV ×2 (00:02→08:41)
--- NOTE | 2024-10-03 02:31 | PC.NURSE ---
Iv catheter out and kinked. Unable to float iv catheter back in. Iv attempt times 2 without success. Both attempts with 22 guage catheters, one to left hand and one to right hand. Patient tolerated procedure without c/o. 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
[2024-10-03] MEDS: HYOSCYAMINE SULFATE 0.125 MG TAB.SUBL SL ×2 (02:35→08:26)
[2024-10-03] MEDS: LACTATED RINGER'S SOLUTION 1,000 ML 125 ML IV (06:06)
[2024-10-03 06:21] LABS: Basophils Percent Auto 0.1 % (0.2-2.0); Eosinophils Percent Auto 0.2 % (0.9-7.0); Hematocrit 35.1 % (36.0-48.0); Hemoglobin 11.9 g/dL (12.0-16.0); Immature Granulocytes Abs Auto 0.03 10^3/uL (0.00-0.03); Immature Granulocytes Pct Auto 0.3 % (0.0-0.5); Lymphocytes Absolute Auto 1.1 10^3/uL (1.2-3.8); Lymphocytes Percent Auto 11.6 % (20.5-60.0); Mean Corpuscular HGB Conc 33.9 g/dL (29.9-35.2); Mean Corpuscular Hemoglobin 30.7 pg (26.7-34.0); Mean Corpuscular Volume 90.5 fL (81.0-99.0); Mean Platelet Volume 10.4 fL (9.5-13.5); Monocytes Absolute Auto 0.6 10^3/uL (0.3-0.8); Monocytes Percent Auto 6.8 % (1.7-12.0); Neutrophils Absolute Auto 7.6 10^3/uL (1.4-6.5); Platelet Count 280 10^3/uL (150-450); Red Blood Count 3.88 10^6/uL (4.20-5.40); Red Cell Distribution Width 13.2 % (11.0-15.0); White Blood Count 9.4 10^3/uL (4.0-11.0)
[2024-10-03 06:34] LABS: Alanine Aminotransferase 11 U/L (14-59); Albumin Level 2.9 g/dL (3.4-5.0); Alkaline Phosphatase 48 U/L (46-116); Anion Gap 10.8; Aspartate Amino Transferase 14 U/L (15-37); BUN Creatinine Ratio 5.1; Bilirubin Total 0.3 mg/dL (0.2-1.0); Calcium 8.3 mg/dL (8.5-10.1); Carbon Dioxide 29.3 mmol/L (21.0-32.0); Chloride 106 mmol/L (98-107); Estimated GFR (African America >60 (>=60 mL/min/1.73m^2); Estimated GFR (Non-African Ame >60 (>=60 mL/min/1.73m^2); Glucose 100 mg/dL (74-106); Potassium 3.1 mmol/L (3.5-5.1); Sodium 143 mmol/L (136-145); Total Protein 5.9 g/dL (6.4-8.2)
[2024-10-03] MEDS: ONDANSETRON PF 4 MG/2 ML VIAL IV (08:23)
[2024-10-03 08:30] VITALS: BP 165/81; PULSE 68; TEMP 36.9; O2SAT 99
[2024-10-03] MEDS: POTASSIUM CHLORIDE 10 MEQ ER TABLET 40 MEQ PO (08:41)
[2024-10-03] MEDS: PANTOPRAZOLE SODIUM 40 MG VIAL IV (08:41)
[2024-10-03] MEDS: CEFTRIAXONE 1,000 MG in 0.9 % SODIUM CHLORIDE 50 ML 100 MG IV (10:16)
--- NOTE | 2024-10-03 11:01 | P.DS_ITS ---
DS: Providers Provider Date of admission: 10/02/24 07:44 Primary care physician: [facility] Admitting clinician: Shaikh Kenna Attending physician on admission: Shaikh Kenna Attending physician on discharge: Shaikh Kenna Discharging clinician: Shaikh Kenna Anticipated date of discharge: 10/03/24 DS: Diagnosis Discharge Diagnosis (1) Enteritis: (2) Leukocytosis: Qualifiers: Leukocytosis type: leukemoid reaction Qualified Code(s): D72.823 - Leukemoid reaction (3) Nausea, vomiting, and diarrhea: DS: Summary Hospital Course Hospital Course: 34 y o female with no sig PMHX presented to ED with intractable nausea and vomiting, watery diarrhea with blood in it for 1-2 days. She also reported abdominal pain and cramps with diarrhea. She reported several family members had GI symptoms but none got sick enough to seek medical attention. Work up in ED revealed leukocytosis with wbc of 30 K [address] abd. She was admitted for intractable nausea/vomiting, inability to tolerate PO diet and dehydration. Was treated with IV fluids, IV Zofran/promethazine as needed for nausea and vomiting. Considerable leukocytosis, diarrhea with blood and leukocytosis-she was treated with IV Rocephin and Flagyl for presumed bacterial gastroenteritis. Earlier today, she felt considerably better with improvement in her white count and is able to tolerate p.o. diet. She is still experiencing mild abdominal discomfort intermittently. She had only 1 episode of vomiting and diarrhea in past 12 hours. Patient is medically stable for discharge. She was educated on worrisome signs and symptoms and was instructed to return to ED if she develops intractable nausea, vomiting and is unable to tolerate p.o. intake Will discharge on PO levaquin/Flagyl along with Levsin and Zofran as needed Status at Discharge Functional status at discharge: independent ambulation Overall status at discharge: patient is back to baseline Time Spent with Patient Time attestation: Total time spent providing and/or coordinating discharge services: Time spent: greater than 30 minutes Exam Constitutional Vital Signs, click to edit/add: Last Vital Signs Temp 98.4 F 10/03/24 08:30 Pulse 68 10/03/24 08:30 Resp 18 10/03/24 08:30 BP 165/81 H 10/03/24 08:30 Pulse Ox 99 10/03/24 08:30 O2 Del Method Room Air 10/03/24 08:30 Documenting provider has reviewed patient's vital signs: yes Common normals: no apparent distress and oriented x3 General appearance: cooperative Respiratory Common normals: normal respiratory effort and clear to auscultation bilaterally Effort & inspection: able to speak in complete sentences Auscultation: clear to auscultation bilaterally Cardio Common normals: regular rate, S1 normal heart sound and S2 normal heart sound Rate: regular rate Heart sounds: S1 normal and S2 normal GI Common normals: Normal to inspection, nondistended, normoactive bowel sounds present, soft to palpation, non-tender and no hepatosplenomegaly Palpation: soft and no hepatosplenomegaly Extremity Common normals: no clubbing, cyanosis or edema Neuro Common normals: oriented x3, moves all extremities and no focal motor deficits Psych Common normals: mental status grossly normal, denies hallucinations, denies homicidal ideation and denies suicidal ideation DS: Data Data Completed and Pending Labs on day of discharge: Labs from last 24 hours 10/03/24 10/02/24 05:44 05:20 WBC 9.4 RBC 3.88 L Hgb 11.9 L Hct 35.1 L MCV 90.5 MCH 30.7 MCHC 33.9 RDW 13.2 Plt Count 280 MPV 10.4 Neut % (Auto) 81.0 H Lymph % (Auto) 11.6 L [place] % (Auto) 6.8 Eos % (Auto) 0.2 L Baso % (Auto) 0.1 L Neut # (Auto) 7.6 H Lymph # (Auto) 1.1 L [place] # (Auto) 0.6 Eos # (Auto) 0.0 Baso # (Auto) 0.0 Abs Immat Gran (auto) 0.03 Imm/Tot Granulo (auto) 0.3 Sodium 143 Potassium 3.1 L Chloride 106 Carbon Dioxide 29.3 Anion Gap 10.8 BUN 4.0 L Creatinine 0.78 Est GFR ( Amer) >60 Est GFR (Non-Af Amer) >60 BUN/Creatinine Ratio 5.1 Glucose 100 Calcium 8.3 L Total Bilirubin 0.3 AST 14 L ALT 11 L Alkaline Phosphatase 48 Total Protein 5.9 L Albumin 2.9 L Globulin 3.0 Albumin/Globulin Ratio 1.0 C. difficile Toxin PCR Negative Discharge Plan Discharge Disposition: Home, Self-Care Condition: Fair Discharge Medications: New ondansetron 4 mg tablet,disintegrating 4 mg PO Q8H PRN (Reason: nausea and vomiting) 4 Days Qty: 10 0RF levofloxacin 750 mg tablet 750 mg PO DAILY 7 Days Qty: 7 0RF metronidazole 500 mg tablet 500 mg PO Q8H 7 Days Qty: 21 0RF hyoscyamine sulfate 0.125 mg tablet 0.125 mg PO Q6H PRN (Reason: dyspepsia) Qty: 20 0RF Continued albuterol sulfate 90 mcg/actuation HFA aerosol inhaler 1 inh INHALATION Q4H PRN (Reason: shortness of breath or wheezing) duloxetine 30 mg capsule,delayed release(DR/EC) 30 mg PO DAILY Activity: increase activity as tolerated Diet: advance to your usual diet Print Language: Taiwanese Forms: Portal Instructions Follow Up Appointments: F/u with PCP in one week
--- NOTE | 2024-10-03 11:15 | CM.NOTE ---
Rounds made with Dr. Pierson. Erna feeling much better this am. Able to tolerate clear liquids . Plan for discharge today.
[2024-10-03 11:20] VITALS: O2SAT 99
--- NOTE | 2024-10-04 15:07 | CM.DCFOLLOWU ---
1st attempt, the phone number has been changed or disconnected 10/04/24
== END 2024-10-03 13:10 | disposition home or self-care (01) ==
LOC: ER 06:55 → MS 07:55
PROVIDERS: Admitting Provider Internal Medicine; Emergency Provider Emergency Medicine; Visit Provider Internal Medicine
DX: K52.9 Noninfective gastroenteritis and colitis, unspecified (principal); E86.0 Dehydration; R10.9 Unspecified abdominal pain; F17.200 Nicotine dependence, unspecified, uncomplicated; Z90.710 Acquired absence of both cervix and uterus; D72.823 Leukemoid reaction
CPT/HCPCS: 36415; 74177; 80048; 80053; 85007; 85025; 85027; 87045; 87046; 87427; 87493; 94761; 96361; 96365; 96366; 96367; 96372; 96375; 96376; 99285; 99406; G0328; G0378; J0500; J0696; J1836; J2060; J2405; J2550; Q9967

== ENCOUNTER 2024-11-02 00:15 | Emergency (ER) | payer OTHER, SELFPAY ==
[2024-11-02 00:19] VITALS: BP 140/88; PULSE 82; TEMP 36.6; O2SAT 98; BMI 20.1
--- OUTSIDE RECORDS SUMMARY | 2024-11-02 00:21 | XMS_ITS | CCD ---
Author Organization [facility] Care Team Providers Care Horticultural Technical Officer Name Role Phone KARINA, KATHIE Unavailable Unavailable [...] Unavailable Unavailable AGUBOSIM, MIRANDA Unavailable Unavailable Claribel SOCIOCULTURAL ANTHROPOLOGY PROFESSOR-AUDIOVISUAL LIBRARIAN, Jean Primary Care Provider JOCELYN RAMIREZ Attending Unavailable [facility], [place] Referring Unavailable [place], [place] Primary Care Unavailable JOCELYN RAMIREZ Referring Unavailable [place], [place] Primary Care Unavailable Allergies Allergy Classification Reported Allergen(s) Allergy Type Date of Onset Reaction(s) Facility (1 source) Ciprofloxacin Drug Allergy [address]ES [facility] Repository (1 source) HYDROmorphone Drug Allergy [address]USEA [facility] Repository (1 source) Leucine Drug Allergy 4 RASH [facility] Repository (1 source) Nitrofurantoin Drug Allergy 4 HIVES [facility] Repository (1 source) Sulfonamides (Antibiotic) Drug allergy (disorder) 4 [facility] Repository (6 sources) NITROFURANTOIN, MACROCRYSTALS / Nitrofurantoin, Monohydrate; Translations: [NITROFURANTOIN MONOHYD/M-CRYST] Drug Allergy 8 [facility] (6 sources) Sulfonamides (Antibiotic); Translations: [SULFA (SULFONAMIDE ANTIBIOTICS)] Propensity to adverse reactions to drug 8 [facility] Medications Current Medications Medication Drug Class(es) Dates Sig (Normalized) Sig (Original) [id number] 200 actuat albuterol 0.09 mg/actuat metered dose [...] conc 4.0 mg/dL Critically low 7.0-17.[address] [facility] Comment on above: Performed By: #### CT/NGNA ####[facility] U[address] [place], [place] [id number] [place] CBC AUTO DIFFon 04-24-2018 Basophils Auto #/vol (Bld) 0.0 103/ul Normal 0.0-0.[address] [facility] Comment on above: Performed By: #### CBC ####[facility] Imjlvnqjln[address] [place] [address] [place] Basophils/100 WBC Auto (Bld) 0.2 % Normal 0.2-2.[address] [facility] Comment on above: Performed By: #### CBC ####[facility] ital Vchikqqiyz[address] [place], [place] [address]ken [place] Eosinophils Auto #/vol (Bld) 0.1 103/ul Normal 0.0-0.[address] [facility] Comment on above: Performed By: #### CBC ####[facility] Wdcyhuabrs[address] [place], [place] [address]ken [place] Eosinophils/100 WBC Auto (Bld) 0.9 % Normal 0.9-7.[address] [facility] Comment on above: Performed By: #### CBC ####[facility] ital Drdjzqzdtr2640[address] [place], [place] [address]ken [place] Erythrocyte distribution width Auto Ratio (RBC) 14.4 % Normal 11.0-15.[address] [facility] Comment on above: Performed By: #### CBC ####[facility] Idoooiolxg7623 [address] [place] Hematocrit Auto Volume Fraction (Bld) 29.3 % Critically low 36.0-48.[address] [facility] Comment on above: Performed By: #### CBC ####[facility] Gjbksxitsz4737 [address] [place] Hemoglobin mass conc (Bld) 9.9 g/dL Critically low 12.0-16.[address] [facility] Comment on above: Result Comment: Surgery and IV fluids Performed By: #### C BC ####[facility] V[address]zr[address] [place] [address] [place] IG # 0.04 10e3/ul Critically high 0.00-0.[address] [facility] Comment on above: Performed By: #### CBC ####[facility] Bjqmtzdhei4439[address] [place] [address] [place] IG % 0.3 % Normal 0.0-0.[address] [facility] Comment on above: Performed By: #### CBC ####[facility] Dbxdqrehhh000[address] [place] [address] [place] Lymphocytes Auto #/vol (Bld) 1.5 103/ul Normal 1.2-3.[address] [facility] Comment on above: Performed By: #### CBC ####[facility] Rngpaagmsu4[address] [place] [address] [place] Lymphocytes/100 WBC Auto (Bld) 11.6 % Critically low 20.5-60.[address] [facility] Comment on above: Performed By: #### CBC ####[facility] Qyclnsnggd2790[address] [place] [address] [place] MANUAL DIFF REQ NO Normal [facility] Comment on above: Performed By: #### CBC ####[facility] Rtnfdmoltx418[address] [place] [address] [place] MCH Auto Entitic mass (RBC) 29.1 pg Normal 26.7-34.[address] [facility] Comment on above: Performed By: #### CBC ####[facility] Evqgfoyezz9839 [address] Street[place], [place] [address]Rvkwgx [place] MCHC Auto mass conc (RBC) 33.8 g/dL Normal 29.9-35.[address] [facility] Comment on above: Performed By: #### CBC ####[facility] ital Iogjnfmfvi0983 [place], [place] [address]Xjfbfu [place] MCV Auto Entitic volume (RBC) 86.2 fL Normal 81.0-99.[address] [facility] Comment on above: Performed By: #### CBC ####[facility] ital Gbxoxigueg4698[address] [place], [place] [address]ken [place] Monocytes Auto #/vol (Bld) 1.0 103/ul Critically high 0.3-0.[address] [facility] Comment on above: Performed By: #### CBC ####[facility] Mqgpfghqqr[address] [place], [place] [address] Monocytes/100 WBC Auto (Bld) 7.5 % Normal 1.7-12.[address] [facility] Comment on above: Performed By: #### CBC ####[facility] Crnczlvpxq5787[address] [place], [place] [address]ken [place] Neutrophils Auto #/vol (Bld) 10.4 103/ul Critically high 1.4-6.[address] [facility] Comment on above: Performed By: #### CBC ####[facility] Fcpnxrssmh4117[address] [place], [place] [address]Gerken [place] Neutrophils/100 WBC Auto (Bld) 79.5 % Critically high 43.0-75.[address] [facility] Comment on above: Performed By: #### CBC ####[facility] Fhcdkcbmzl3441 [place], [place] [address]Umbgca [place] Platelet mean volume Auto Entitic volume (Bld) 10.0 fL Normal 9.5-13.[address] [facility] Comment on above: Performed By: #### CBC ####[facility] [address] [place] [address]Oslqii [place] Platelets Auto #/vol (Bld) 252 103/ul Normal 150-[address] [facility] Comment on above: Performed By: #### CBC ####[facility] ital Sixnfwatda1913 [address] [place] RBC Auto #/vol (Bld) 3.40 106/ul Critically low 4.20-5.[address] [facility] Comment on above: Performed By: #### CBC ####[facility] ital Bgadzyzvli9413 [address] [place] WBC Auto #/vol (Bld) 13.1 103/ul Critically high 4.0-11.[address] [facility] Comment on above: Performed By: #### CBC ####[facility] Ruhbtmkkos[address] [place] [address] [place] CREATININEon 04-24-2018 Creatinine mass conc 0.49 mg/dL Critically low 0.52-1.[address] [facility] Comment on above: Performed By: #### CT/NGNA ####[facility] Fxiphxqwzw[address] [place] [address] [place] EGFR-AF TAIWANESE >60 Normal >=[address] [facility] Comment on above: Performed By: #### CT/NGNA ####[facility] Verdagtomw[address] [place] [address] [place] EGFR-NON AF TAIWANESE >60 Normal >=[address] [facility] Comment on above: Performed By: #### CT/NGNA ####[facility] Wgdpkegscb[address] [place] [address] [place] CBC AUTO DIFFon 04-23-2018 Basophils Auto #/vol (Bld) 0.1 103/ul Normal 0.0-0.[address] [facility] Comment on above: Performed By: #### CBC ####[facility] Kxq[address]sd[address] [place] [address] [place] Basophils/100 WBC Auto (Bld) 0.4 % Normal 0.2-2.[address] [facility] Comment on above: Performed By: #### CBC ####[facility] Knkyprhben[address] [place] [address] [place] Eosinophils Auto #/vol (Bld) 0.3 103/ul Normal 0.0-0.7 [facility] Comment on above: Performed By: #### CBC ####[facility] ital Alwvjxurir7619 [address] [place] Eosinophils/100 WBC Auto (Bld) 2.2 % Normal 0.9-7.0 [facility] Comment on above: Performed By: #### CBC ####[facility] ital Uapyibkmdt7772 [address] [place] Erythrocyte distribution width Auto Ratio (RBC) 14.5 % Normal 11.0-15.0 [facility] Comment on above: Performed By: #### CBC ####[facility] Fhsgnajriq3[address] [place] [address] [place] Hematocrit Auto Volume Fraction (Bld) 37.0 % Normal 36.0-48.0 [facility] Comment on above: Performed By: #### CBC ####[facility] Qtghnjvjjs[address] [place] [address] [place] Hemoglobin mass conc (Bld) 12.4 g/dL Normal 12.0-16.0 [facility] Comment on above: Performed By: #### CBC ####[facility] Othgayneoa[address] [place] [address] [place] IG # 0.04 10e3/ul Critically high 0.00-0.03 [facility] Comment on above: Performed By: #### CBC ####[facility] Oescvvlwrp1624[address] [place] [address] [place] IG % 0.4 % Normal 0.0-0.5 [facility] Comment on above: Performed By: #### CBC ####[facility] ital Frlkuzaued[address] [place] [address] [place] Lymphocytes Auto #/vol (Bld) 3.0 103/ul Normal 1.2-3.[address] [facility] Comment on above: Performed By: #### CBC ####[facility] ital Roqrejrxmz3433[address] [place] [address] [place] Lymphocytes/100 WBC Auto (Bld) 27.1 % Normal 20.5-60.0 [facility] Comment on above: Performed By: #### CBC ####[facility] ital Xsodbyemak0637 [address] [place] MANUAL DIFF REQ NO Normal [facility] Comment on above: Performed By: #### CBC ####[facility] ital Ezchjdwooa3006 [place] [id number] [place] MCH Auto Entitic mass (RBC) 28.9 pg Normal 26.7-34.0 [facility] Comment on above: Performed By: #### CBC ####[facility] ital Yvdebgwgkl8353 [address] [place] MCHC Auto mass conc (RBC) 33.5 g/dL Normal 29.9-35.[address] [facility] Comment on above: Performed By: #### CBC ####[facility] Rijvwrneed[address] [place] [address] [place] MCV Auto Entitic volume (RBC) 86.2 fL Normal 81.0-99.0 [facility] Comment on above: Performed By: #### CBC ####[facility] Gbvvdkuwku[address] [place] [address] [place] Monocytes Auto #/vol (Bld) 0.9 103/ul Critically high 0.3-0.8 [facility] Comment on above: Performed By: #### CBC ####[facility] Hkzasnuuye[address] [place], [place] [address] Monocytes/100 WBC Auto (Bld) 8.5 % Normal 1.7-12.0 [facility] Comment on above: Performed By: #### CBC ####[facility] Pezcziojpx3687 [place] [address]Gerken [place] Neutrophils Auto #/vol (Bld) 6.8 103/ul Critically high 1.4-6.5 [facility] Comment on above: Performed By: #### CBC ####[facility] [address] [place], [place] [address]Gerken [place] Neutrophils/100 WBC Auto (Bld) 61.4 % Normal 43.0-75.[address] [facility] Comment on above: Performed By: #### CBC ####[facility] Jkkvrtgios8291 [address] [place] Platelet mean volume Auto Entitic volume (Bld) 9.4 fL Critically low 9.5-13.5 [facility] Comment on above: Performed By: #### CBC ####[facility] Pqvxnngsdx[address] [place] [address] [place] Platelets Auto #/vol (Bld) 356 103/ul Normal 150-[address] [facility] Comment on above: Performed By: #### CBC ####[facility] Gkaoacdtla0515[address] [place] [address] [place] RBC Auto #/vol (Bld) 4.29 106/ul Normal 4.20-5.[address] [facility] Comment on above: Performed By: #### CBC ####[facility] Vysdrfcmeb[address] [place] [address] [place] WBC Auto #/vol (Bld) 11.1 103/ul Critically high 4.0-11.[address] [facility] Comment on above: Performed By: #### CBC ####[facility] Dqihiwseoj[address] [place] [address] [place] PREG QUANT HCGon 04-23-2018 HCG QUANT <2.39 Normal [address] [facility] Comment on above: Performed By: #### PREGQNT ####[facility] Nslgzppymm[address] [place] [address] [place] HCG RANGE SEE BELOW Normal [facility] Comment on above: Result Comment: 5-50 0-1 WEEK 40-300 1-2 WEEKS 100-1,000 2-3 WEEKS 500-6,000 3-4 WEEKS 5,000-200,000 1-2 MONTHS 10,000-100,000 2-3 MONTHS 3,000-50,000 2ND TRIMESTER 1,000-50,000 3RD TRIMESTER Performed By: #### P REGQNT ####[facility] Phcmurjgoi[address] [place] [address] [place] CBC AUTO DIFFon 04-02-2018 Basophils Auto #/vol (Bld) 0.0 103/ul Normal 0.0-0.[address] [facility] Comment on above: Performed By: #### CBC ####[facility] Tlmzezlrkc[address] [place] [address] [place] Basophils/100 WBC Auto (Bld) 0.5 % Normal 0.2-2.[address] [facility] Comment on above: Performed By: #### CBC ####[facility] Enniwumxcy6[address] [place] [address] [place] Eosinophils Auto #/vol (Bld) 0.3 103/ul Normal 0.0-0.[address] [facility] Comment on above: Performed By: #### CBC ####[facility] Hqwcuatspl2212[address] [place] [address] [place] Eosinophils/100 WBC Auto (Bld) 3.6 % Normal 0.9-7.[address] [facility] Comment on above: Performed By: #### CBC ####[facility] Egibfuxvlf0433[address] [place] [address] [place] Erythrocyte distribution width Auto Ratio (RBC) 14.2 % Normal 11.0-15.[address] [facility] Comment on above: Performed By: #### CBC ####[facility] Qwtkyqdutr76[address] [place] [address] [place] Hematocrit Auto Volume Fraction (Bld) 40.7 % Normal 36.0-48.[address] [facility] Comment on above: Performed By: #### CBC ####[facility] Nijuxeaymj9[address] [place] [address] [place] Hemoglobin mass conc (Bld) 13.6 g/dL Normal 12.0-16.[address] [facility] Comment on above: Performed By: #### CBC ####[facility] Hknhbojrnq[address] [place] [address] [place] IG # 0.02 10e3/ul Normal 0.00-0.[address] [facility] Comment on above: Performed By: #### CBC ####[facility] Lxjzqbmdkn0487 [address] [place] IG % 0.2 % Normal 0.0-0.5 [facility] Comment on above: Performed By: #### CBC ####[facility] Rxyykcazue[address] [place] [address] [place] Lymphocytes Auto #/vol (Bld) 1.9 103/ul Normal 1.2-3.[address] [facility] Comment on above: Performed By: #### CBC ####[facility] Upksmvkaww[address] [place] [address] [place] Lymphocytes/100 WBC Auto (Bld) 22.5 % Normal 20.5-60.[address] [facility] Comment on above: Performed By: #### CBC ####[facility] Bobgjuyxlj[address] [place] [address] [place] MANUAL DIFF REQ NO Normal [facility] Comment on above: Performed By: #### CBC ####[facility] Bsggmdipqz38[address] [place] [address] [place] MCH Auto Entitic mass (RBC) 29.0 pg Normal 26.7-34.[address] [facility] Comment on above: Performed By: #### CBC ####[facility] Axidvctjix9[address] [place] [address] [place] MCHC Auto mass conc (RBC) 33.4 g/dL Normal 29.9-35.[address] [facility] Comment on above: Performed By: #### CBC ####[facility] Ceyrzrsedm5[address] [place] [address] [place] MCV Auto Entitic volume (RBC) 86.8 fL Normal 81.0-99.[address] [facility] Comment on above: Performed By: #### CBC ####[facility] Fdopkqpzjh[address] [place] [address] [place] Monocytes Auto #/vol (Bld) 0.7 103/ul Normal 0.3-0.[address] [facility] Comment on above: Performed By: #### CBC ####[facility] Mfprenznuw[address] [place], [place] [address] [place] Monocytes/100 WBC Auto (Bld) 8.9 % Normal 1.7-12.[address] [facility] Comment on above: Performed By: #### CBC ####[facility] Vawpkcmndy1162 [place], [place] [address]Rstusf [place] Neutrophils Auto #/vol (Bld) 5.4 103/ul Normal 1.4-6.[address] [facility] Comment on above: Performed By: #### CBC ####[facility] Zlhibwrftp3195 [place] [id number] [place] Neutrophils/100 WBC Auto (Bld) 64.3 % Normal 43.0-75.[address] [facility] Comment on above: Performed By: #### CBC ####[facility] Ufquwlxdmq6796 [place] [id number] [place] Platelet mean volume Auto Entitic volume (Bld) 9.2 fL Critically low 9.5-13.[address] [facility] Comment on above: Performed By: #### CBC ####[facility] Owlmztdxir[address] [place], [place] [address]Gerken [place] Platelets Auto #/vol (Bld) 327 103/ul Normal 150-[address] [facility] Comment on above: Performed By: #### CBC ####[facility] Kaybkutbeh4507 [place], [place] [address]Yzxjow [place] RBC Auto #/vol (Bld) 4.69 106/ul Normal 4.20-5.[address] [facility] Comment on above: Performed By: #### CBC ####[facility] Usmydvvnro9286 [place], [place] [address]Tkhplh [place] WBC Auto #/vol (Bld) 8.3 103/ul Normal 4.0-11.[address] [facility] Comment on above: Performed By: #### CBC ####[facility] Dhokmyuypc5930 [place], [place] [address]Nqgbtv [place] TSHon 04-02-2018 Thyrotropin Qn 1.150 uIU/mL Normal 0.470-4.[address] [facility] Comment on above: Performed By: #### TSH ####[facility] Bwcjqsonlm7853 [place], [place] [address]Yiolsi [place] Thyrotropin Qn SEE BELOW Normal [facility] Comment on above: Result Comment: <0.34 UIU/ml HYPERTHYROI D 0.34-5.60 UIU/ml EUTHYROID >5.60 UIU/ml HYPOTHYROID Performed By: #### T SH ####[facility] Trfsdepges1750 [place], [place] [address]Rdvukj [place] US PELVIS AND TRANSVAGon US PELVIS AND TRANSVAG [address] [place] [address] Patient: ERNA JENKINS Exam Date: 03/14/2018DOB: 1990 Gender:F : DR KATHIE COLLINS . Admission #: [id number] : Order #: [id number] HERE TO VIEW EXAM RADIOLOGY REPORT PROCEDURE: [...] Richards M.D. on 03/14/2018 at 18:00 Normal [facility] PAP ACOG PANEL 2: 30 to 65on 02-28-2018 Age Gdln ACOG Testing 30-65 Normal [facility] Comment on above: Performed By: #### [id number] ####[facility] [address] [place] [address] COMMENT Comment Normal [facility] Comment on above: Result Comment: [id number] a t: WB Performed By: #### [id number] ####[facility] [address] [place] [address] DIAGNOSIS: Comment Normal [facility] Comment on above: Result Comment: NEGATIVE FOR INTRAEPITHE LIAL LESION AND MALIGNANCY.THIS SPECIMEN WAS RESCREENED PART OF OUR RESIDENCY DIRECTOR PROGRAM.Performed at: WB Performed By: #### 4 [id number] ####[address] HPV Aptima Negative Normal Negative [facility] Comment on above: Result Comment: This test was developed and its performance characteristicsdetermined by [employer]. It has not been cleared or approvedby the Food and Drug Administration.This test detects fourteen high-risk HPV types (16/18/31/33/35/39/45/51/52/56/58/59/66/68) without differentiation.Performed at: =G Performed By: #### 4 [id number] ####[address] Methodology: Comment Normal [facility] Comment on above: Result Comment: This liquid based SurePa th(R) pap test was screened with theassistance of an image guided system.Performed at: WB Performed By: #### [id number] ####[facility] [address]ful[address] [place] [address] Note: Comment Normal [facility] Comment on above: Result Comment: The Pap smear is a scree blayne test designed to aid in the detection ofpremalignant and malignant conditions of the uterine cervix. It is not adiagnostic procedure and should not be used as the sole means of detectingcervical cancer. Both false-positive and false-negative reports do occur. .Performed at: WB Performed By: #### [id number] ####[facility] Xuhcisqbol8342 [address] [place] Performed by: Comment Normal [facility] Comment on above: Result Comment: Maryjane Moss Cytote chnologist (ASCP)Performed at: WB Performed By: #### [id number] ####[facility] Zurbfsgitp3734 [address] [place] QC reviewed by: Comment Normal [facility] Comment on above: Result Comment: Patsy Hernandez Cytot echnologist (ASCP)Performed at: WB Performed By: #### [id number] ####[facility] Rxflkkthmu[address] [place] [address] [place] Specimen adequacy: Comment Normal [facility] Comment on above: Result Comment: Satisfactory for evaluat ion. Endocervical and/or squamous metaplasticcells (endocervical component) are present.Performed at: WB Performed By: #### 4 [id number] ####[facility] Nmkqv[address]uu[address] [place] [address] [place] . . Normal [facility] Comment on above: Result Comment: Performed at: WB Performed By: #### 4 [id number] ####[facility] Rnldpghocl[address] [place] [address] [address] CHLAMYDIA/GONOCOCCUS FLOWER W/C ONF. (SWAB/Uon 11-12-2017 Chlamydia Trach FLOWER Negative Normal Negative [facility] Comment on above: Performed By: #### CT/NGNA ####[facility] [address] [place] [address] Bernadette N. Gonorrhoeae FLOWER Negative Normal Negative [facility] Comment on above: Performed By: #### CT/NGNA ####[facility] [address] [place] [address] Bernadette VAGINITIS/VAGINOSIS DNA PROB Mario 11-11-2017 Adeline species Negative Normal Negative [facility] Comment on above: Performed By: #### VAGINT ####[facility] [address] [place] [address] Bernadette Gardnerella vaginalis Negative Normal Negative [facility] Comment on above: Performed By: #### VAGINT ####[facility] [address] [place], [place] [address]JoojkrHilario Fleming Trichomonas vaginalis Negative Normal Negative [facility] Comment on above: Performed By: #### VAGINT ####[facility] [address] [place], [place] [address]KzkegdHilario Fleming Vital Signs Date Time Vital Sign Value Performing Clinician Faci lity 10-16-2023 14:04-0500 Body height 157.5 cm Jocelyn Ramirez DO Work Phone: [facility] 10-16-2023 14:04-0500 Body mass index (BMI) [Ratio] 20.85 kg/m2 Jocelyn Brownner DO Work Phone: [facility] 10-16-2023 14:04-0500 Body weight 51.71 kg Jocelyn Ashley DO Work Phone: [facility] 10-16-2023 14:04-0500 Diastolic blood pressure 81 mm[Hg] Jocelyn Brownner DO Work Phone: [facility] [employer] 10-16-2023 14:04-0500 Heart rate 75 /min Jocelyn Brownner DO Work Phone: [facility] 10-16-2023 14:04-0500 Respiratory rate 15 /min Jocelyn Ramirez DO Work Phone: [facility] 10-16-2023 14:04-0500 Systolic blood pressure 111 mm[Hg] Jocelyn Brownner DO Work Phone: [facility] Encounters Encounter Date Encounter Type Care Provider Facility Start: 10-25-2023 End: 10-26-2023 ambulatory JOCELYN Hipolito ASHLEY [facility] Start: 10-16-2023 End: 10-16-2023 Office outpatient new 45 minutes Jocelyn Hipolito Brownsiomara DO Work Phone: [facility] Comment on above: Mass of left thigh ( Primary Dx) Start: 10-16-2023 End: 10-16-2023 Orders Only Chika Juan [facility] Comment on above: Soft tissue mass (Pr imary Dx) Start: 09-28-2023 Telephone encounter Chika Martinez [facility] Start: 09-20-2023 Telephone encounter Chika Martinez [facility] Start: 04-23-2018 End: 04-25-2018 Evaluation and management of inpatient KATHIE KARINA Facility:H1 Start: 04-11-2018 Encounter for other preprocedural examination [facility] Start: 04-05-2018 End: 04-06-2018 Patient encounter procedure KATHIE KARINA Facility:[facility]1 Start: 04-02-2018 End: 04-03-2018 Patient encounter procedure KATHIE KARINA Facility:[facility]1 Start: 03-14-2018 End: 03-15-2018 Patient encounter procedure KATHIE KARINA Facility:[facility]1 Start: 02-23-2018 End: 02-23-2018 Patient encounter procedure KATHIE KARINA Facility:H1 Start: 11-09-2017 End: 11-09-2017 Patient encounter procedure KATHIE KARINA Facility:H1 Encounter for other preprocedural examination [facility] Procedures Date Procedure Procedure Detail Performing Clinician Start: 04-23-2018 Resection of Bilater al Fallopian Tubes, Open Approach KATHIE KARINA Start: 04-23-2018 Resection of Uterus, Open Approach KATHIE KARINA Plan of Treatment Date Care Activity Detail Author Start: 10-16-2024 Adult BMI Screening Adult BMI Screen ing [facility] Start: 06-09-2024 Tobacco Counseling Tobacco Counselin g [facility] Start: 12-08-2023 Adult BMI Screening Adult BMI Screen ing [facility] Start: 12-08-2023 Tobacco Screening Tobacco Screening [facility] Start: 11-02-2023 End: 11-02-2023 Patient encounter procedure 11/02/2023 1:00 PM EST Office Visit [facility] [address] [facility] [address] [place] [id number] Jocelyn Ramirez, DO [address] [facility] [place], [place] [id number] [facility] Start: 10-25-2023 End: 10-25-2023 Patient encounter procedure 10/25/2023 8:45 AM EST Appointment [facility] [address] [facility] [place] [id number] [facility] Start: 10-16-2023 End: 10-16-2024 MR Thigh - left WO and W contrast IV MR thigh left with and without contrast Imaging Routine Soft tissue mass Expected: 10/16/2023, Expires: 10/16/2024 [facility] Work Phone: Comment on above: Expected: 10/16/2023 , Expires: 10/16/2024 Start: 05-26-2023 Influenza vaccination Influenza Vacc ine [facility] Start: 02-10-2007 DTaP,Tdap and Td Vaccines (1 - Tdap) DTaP,Tdap and Td Vaccines (1 - Tdap) [facility] Start: 2000 Depression Screening Depression Scre [facility] Payers Date Payer Category Payer Medicaid [employer] [place] [id number] 2023-Present [phone] [address] [place] [address] [id number] 1988 Unknown [id number] 1988 Unknown [id number] 1988 Unknown [id number] 1988 Unknown [id number] 1988 Unknown [id number] 1988 Unknown [id number] 1988 Unknown [id number] 1988 Unknown [id number] 1959 Unknown [id number] Social History Date Type Detail Facility Start: 12-07-2022 Tobacco smoking stat [facility] Smokes tobacco daily [facility] History of tobacco use Cigarette Smoker P [facility] Start: 11-04-2020 End: 12-07-2022 Cigarettes smoked current (pack per day) - Reported 1 [facility] Start: 12-07-2022 Tobacco use and exposure Smoke less tobacco non-user [facility] Start: 12-07-2022 Alcohol intake Current drinke r of alcohol (finding) [facility] Start: 11-04-2020 End: 12-07-2022 Tobacco use panel [facility] Housing Instability Unknown [facility] Start: 11-05-2017 Alcohol Comment OCCASIONAL [facility] Start: 1990 Sex Assigned At Not on file P [facility] History of Present illness Narrative 10-16-2023 [...] Jocelyn Ramirez D.O. documented in this encounter [facility] Note 09-28-2023 Telephone Encounter - Chika [...] Mom voiced understanding documented in this encounter [facility] Telephone encounter Note 09-28-2023 Telephone Encounter [...] back for an appointment. Mom voiced understanding [facility] 09-20-2023 Telephone Encounter - Chika Martinez CMA - 09/20/2023 4:13 PM EST Note Date & Type Note Facility 09-20-2023 Miscellaneous Notes Formattin g of this note might be different from the original. 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 Have called all 3 numbers on patient chart.Patient phone number disconnected an left a vm on the other two for patient to call us back. documented in this encounter [facility] Telephone encounter Note 09-20-2023 Telephone Encounter - Chika Martinez CMA - 09/20/2023 4:13 PM EST Note Date & Type Note Facility 09-20-2023 Telephone encounter Note Trying to call patient to get scheduled for a BOATING SAFETY OFFICER appointment. Have called all 3 numbers on patient chart.Patient phone number disconnected an left a vm on the other two for patient to call us back. [facility] Evaluation note Note Date & Type Note Facility Evaluation note Diagnosis Soft tissue mass- Primary Disorders of soft tissue, unspecified documented in this encounter [facility] Evaluation note Note Date & Type Note Facility Evaluation note Diagnosis Mass of left thigh- Primary documented in this encounter [facility] Instructions Note Date & Type Note Facility Instructions Not on filedocumented in this en counter [facility] Instructions Note Date & Type Note Facility Instructions Not on filedocumented in this en counter [facility] Instructions Attachments Note Date & Type Note Facility Instructions The following attachments cannot be sent through Care Everywhere.Epidermal Cyst Discharge Instructions (Kenyan)documented in this encounter [facility] Summary Purpose Family History No Family History Records FoundNo Family History Records FoundNo Family History Records Found Advance Directives No Advanced Directives Records FoundNo Advanced Directives Records FoundNo Advanced Directives Records Found Hospital Course Note DISCHARGE SUMMARYDischarge D ate: 8-2-99GCTCCMP DIAGNOSIS:1. Menometrorrhagia.2. Dysmenorrhea.3. Dyspareunia.4. Pelvic pain.PROCEDURE: Total [...] unrelieved byTylenol, any abdominal pain unrelieved with narcotics.[facility] Signed and Approved by: DR KATHIE COLLINS .05/03/2018 14:20:00 Reason for Referral Specialty Diagnoses / Procedures Referred By Isaias aguayo Referred To Contact Radiology Diagnoses Soft tissue mass Procedures MR thigh left with and without contrast Jocelyn Ramirez, DO [address], [address] [place] [address] [facility] [address] [place] [address] Phone: [phone] Referral ID Status Reason Start Date Expiration Date V isits Requested Visits Authorized [id number] Pending Review 10/16/2023 10/15/2024 1 1 Additional Source Comments INFORMATION SOURCE (unrecogn ized section and content) DATE CREATED AUTHOR 09/02/2018 [facility] DATE CREATED AUTHOR AUTHOR'S ORGANIZ ATION 10/18/2023 [facility] DATE CREATED AUTHOR AUTHOR'S ORGANIZ ATION 10/29/2023 [facility] Care Teams (unrecognized sec tion and content) Horticultural Technical Officer Relationship Specialty Start Date End Date Kyra Reyes APRN-FNP [address] [place] [address] PCP - General Family Medicine 09/05/23 Horticultural Technical Officer Relationship Specialty Start Date End Date Kyra ReyesALEKSANDER-KAM [address] [place] [address] PCP - General Family Medicine 09/05/23 Horticultural Technical Officer Relationship Specialty Start Date End Date ClaribelKyra TitusTRE [address] [place] [address] PCP - General Family Medicine 09/05/23 Reason [...] BE BASED ON THE PRIMARY CLINICAL RECORDS. [employer] provides no warranty or guarantee of the accuracy or completeness of information in this document.
--- NOTE | 2024-11-02 00:39 | ECG_ITS ---
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
--- NOTE | 2024-11-02 00:44 | XR_ITS ---
The [address] [address] Patient Name: AMANDA FINN MRN: [id number] date: 1990 Sex: F Assigned Patient Location: ER Current Patient Location: ER Accession/Order Number: [id number] Exam Date: 11/02/2024 01:00 Report Date: 11/02/2024 01:21 At the request of: BON ROE Procedure: XR chest 1V EXAM: XR Chest, 1 View CLINICAL INDICATION: SOB TECHNIQUE: Frontal view of the chest. COMPARISON: No relevant prior studies available. FINDINGS: LUNGS AND PLEURAL SPACES: There is bronchial thickening. No consolidation. No pneumothorax. HEART: Unremarkable. No cardiomegaly. MEDIASTINUM: Unremarkable. Normal mediastinal contour. BONES/JOINTS: Unremarkable. No acute fracture. XR/XR chest 1V IMPRESSION: There is bronchial thickening. No consolidation. Electronically authenticated by: TROY TABARES Date: 11/02/2024 01:21
--- NOTE | 2024-11-02 00:44 | ED_ITS ---
HPI - URI/Sore Throat General Chief Complaint: Upper Respiratory Infection Stated Complaint: Upper Respiratory Infection Chest pain Time Seen by Provider: 11/02/24 00:39 Source: patient Limitations: no limitations History of Present Illness HPI Narrative: 34-year-old female presents for difficulty breathing. She has been sick for about 4 days. It started in her nose and now she is coughing up some green phlegm. She is running out of her vials of albuterol for her nebulizer. No hemoptysis or fever. Related Data Home Medications ?Medication ?Instructions ?Recorded ?Confirmed albuterol sulfate 90 mcg/actuation 1 inh inhalation Q4H PRN shortness 10/02/24 11/02/24 aerosol inhaler of breath or wheezing duloxetine 30 mg capsule,delayed 30 mg PO DAILY 10/02/24 11/02/24 release Previous Rx's ?Medication ?Instructions ?Recorded albuterol sulfate 2.5 mg/3 mL 2.5 mg (3 mL) inhalation Q6H PRN 11/02/24 (0.083 %) solution for nebulization shortness of breath or wheezing #90 mL prednisone 10 mg tablet See Rx Instructions .Route 11/02/24 .COMPLEX #30 tabs sulfamethoxazole 800 1 tab PO BID 10 days #20 tabs 11/02/24 mg-trimethoprim 160 mg tablet (Bactrim DS) Allergies Allergy/AdvReac Type Severity Reaction Status Date / Time nitrofurantoin (From Allergy Intermediate Hives Verified 11/02/24 00:19 Macrobid) Sulfa (Sulfonamide Allergy Intermediate Hives Verified 11/02/24 00:19 Antibiotics) Review of Systems ROS Narrative A ten point review of systems is negative except as noted above. [facility] Medical History (Updated 11/02/24 @ 01:34 by Gonzalez Ring MD) Enteritis ?K52.9 - Noninfective gastroenteritis and colitis, unspecified (ICD-10) Fibromyalgia ?M79.7 - Fibromyalgia (ICD-10) Asthma ?J45.909 - Unspecified asthma, uncomplicated (ICD-10) Surgical History (Updated 10/02/24 @ 09:39 by Juliet Machuca) H/O exploratory laparotomy ?Z98.890 - Other specified postprocedural states (ICD-10) H/O: hysterectomy ?Z90.710 - Acquired absence of both cervix and uterus (ICD-10) Family History (Updated 10/02/24 @ 09:40 by Juliet Machuca) Father Family history of CHF (congestive heart failure) Family history of myocardial infarction Grandmother Family history of cancer Mother Family history of diabetes mellitus Social History (Updated 10/02/24 @ 09:42 by Juliet Machuca) Within the past year, how often did you have a drink containing alcohol: never Score interpretation: A score less than 3 is consistent with normal alcohol consumption. Smoking status: Current every day smoker Non-prescribed substance use: cannabis (any form) Previous occupational history: unemployed Highest level of school completed/degree received: high school graduate Are you now , , , , never or living with a partner: living with partner Little interest or pleasure in doing things: not at all Feeling down, depressed, or hopeless: not at all Exam Narrative Exam Narrative: Nurses note and vital signs reviewed and patient is not hypoxic. General: The patient appears well and in no apparent distress. Patient is resting comfortably on cart. Skin: Warm, dry, no pallor noted. There is no rash noted. Head: Normocephalic, atraumatic Eye: Normal conjunctiva, no drainage Ears, Nose, Mouth, and Throat: oral mucosa is moist. Nares patent. Cardiovascular: Regular Rate and Rhythm Respiratory: Patient is in no distress, no accessory muscle use, lungs are clear to auscultation, no wheezing, rales or rhonchi. Good air movement present Back: non-tender GI: Soft and nontender Musculoskeletal: The patient has no evidence of calf tenderness, no pitting edema, symmetrical pulses noted bilaterally Neurological: A&O, normal speech Psychiatric: Cooperative Constitutional Vital Signs, click to edit/add: Last Vital Signs Temp 98 F 11/02/24 00:19 Pulse 82 11/02/24 00:19 Resp 16 11/02/24 00:19 BP 140/88 11/02/24 00:19 Pulse Ox 98 11/02/24 00:19 O2 Del Method Room Air 11/02/24 00:19 Course Vital Signs Vital signs: Vital Signs Temperature 98 F 11/02/24 00:19 Pulse Rate 82 11/02/24 00:19 Respiratory Rate 16 11/02/24 00:19 Blood Pressure 140/88 11/02/24 00:19 Pulse Oximetry 98 11/02/24 00:19 Oxygen Delivery Method Room Air 11/02/24 00:19 Temperature 98 F 11/02/24 00:19 Pulse Rate 82 11/02/24 00:19 Respiratory Rate 16 11/02/24 00:19 Blood Pressure 140/88 11/02/24 00:19 Pulse Oximetry 98 11/02/24 00:19 Oxygen Delivery Method Room Air 11/02/24 00:19 MDM - URI/Sore Throat MDM Narrative Medical decision making narrative: Chest x-ray shows no infiltrate. COVID and influenza test are negative. She is given prescriptions for prednisone, albuterol, and Bactrim. Treatment diagnosis and follow-up were discussed with the patient. Differential Diagnosis Differential diagnosis: Likely upper respiratory infection, influenza and other (Pneumonia, COVID) Lab Data Attestation: I reviewed the patient's lab results. Labs: Lab Results 11/02/24 Range/Units 00:30 Influenza Type A Ag Negative Influenza Type B Ag Negative SARS-CoV-2 Ag (CV2AG) Negative (NEGATIVE) Imaging Data Chest x-ray: Radiologist's impression: ITS Impressions Chest X-Ray 11/02/24 00:44 IMPRESSION: There is bronchial thickening. No consolidation. Electronically authenticated by: TROY TABARES Date: 11/02/2024 01:21 Discharge Plan Discharge Chief Complaint: Upper Respiratory Infection Clinical Impression: Upper respiratory infection Patient Disposition: Home, Self-Care Time of Disposition Decision: 01:33 Condition: Good Mode of Transportation: Private Vehicle Prescriptions / Home Meds: New prednisone 10 mg tablet See Rx Instructions .ROUTE .COMPLEX Qty: 30 0RF Rx Instructions: 4 by mouth daily for three days then 3 by mouth daily for three days then 2 by mouth daily for three days then 1 by mouth daily for three days sulfamethoxazole-trimethoprim [Bactrim DS] 800-160 mg tablet 1 tab PO BID 10 Days Qty: 20 0RF albuterol sulfate 2.5 mg /3 mL (0.083 %) solution for nebulization 2.5 mg inhalation Q6H PRN (Reason: shortness of breath or wheezing) Qty: 90 0RF No Action albuterol sulfate 90 mcg/actuation HFA aerosol inhaler 1 inh INHALATION Q4H PRN (Reason: shortness of breath or wheezing) duloxetine 30 mg capsule,delayed release(DR/EC) 30 mg PO DAILY Print Language: German Instructions: Upper Respiratory Infection (ED) Referrals: [facility] [Primary Care Provider] - 1 week
[2024-11-02 01:02] LABS: Influenza Virus A Antigen Negative; Influenza Virus B Antigen Negative; Internal Control Within Normal Limits; SARS-CoV-2 Ag NEGATIVE (NEGATIVE)
[2024-11-02] MEDS: DOXYCYCLINE MONOHYDRATE 100 MG CAPSULE PO (01:55)
[2024-11-02] MEDS: PREDNISONE 20 MG TABLET 40 MG PO (01:55)
[2024-11-02] MEDS: ALBUTEROL SULFATE 2.5 MG/3 ML VIAL NEB IH (01:55)
== END 2024-11-02 01:58 | disposition home or self-care (01) ==
PROVIDERS: Emergency Provider Emergency Medicine
DX: J06.9 Acute upper respiratory infection, unspecified (principal); Z90.710 Acquired absence of both cervix and uterus; F17.200 Nicotine dependence, unspecified, uncomplicated
CPT/HCPCS: 71045; 87804; 87811; 93005; 99285; J7512